=== PATIENT | female | born 1955 | race Caucasian/White ===

== ENCOUNTER 2017-01-10 09:36 | Inpatient (IN) | payer MEDICAID ==
[~2017-01-10] VITALS: Ht 30.5 cm; Wt 86.2 kg
[~2017-01-10 09:36] MED LIST: ALB2.5IS IN; ALPR0.5T7 PO; ARIP1SOL; BUSP15TA60 PO; METH5TAB2 PO; NOR5T PO; PHE100C PO; QUET200T30 PO
[2017-01-10 09:55] VITALS: BP 113/69
[2017-01-10 11:22] LABS: Lactic Acid 2.1 mmol/L (0.4-2.0)
[2017-01-10 11:23] LABS: DEFINITIVE VIEW TRANSMISSION; Hematocrit 43.6 % (36.0-46.0); Hemoglobin 12.5 g/dL (12.2-16.2); Mean Corpuscular Hgb Conc. 28.7 g/dL (32.0-36.0); Mean Corpuscular Volume 69.6 fL (80.0-100.0); Mean Platelet Volume 8.2 fL (7.4-10.4); Platelet Count (auto) 299 10^3/uL (140-450); White Blood Cell 15.9 10^3/uL (4.4-10.8)
[2017-01-10 11:34] LABS: Salicylate 3.5 mg/dL (2.8-20.0)
[2017-01-10 11:36] LABS: Acetaminophen < 2.0 ug/mL (10-30)
[2017-01-10 11:38] LABS: Albumin 3.2 g/dL (3.4-5.0); Alkaline Phosphatase 93 U/L (45-117); Anion Gap 7 (5-15); Aspartate Aminotransferase 19 U/L (15-37); BUN/Creatinine Ratio 13.8; Bilirubin, Total 0.3 mg/dL (0.2-1.0); Blood Urea Nitrogen 12 mg/dL (7-18); Calcium 8.2 mg/dL (8.5-10.1); Carbon Dioxide 29 mmol/L (21-32); Chloride 104 mmol/L (98-107); GFR African American 86 mL/min; GFR Non-African American 71 mL/min; Glucose 125 mg/dL (74-106); Potassium 4.5 mmol/L (3.5-5.1); REFLEX LACTIC ACID YES OR NO YES; Sodium 140 mmol/L (136-145); Total Protein 6.9 g/dL (6.4-8.2)
[2017-01-10 11:48] LABS: Red Cell Distribution Width 20.2 % (11.6-16.0)
[2017-01-10 11:50] LABS: Metamyelocytes % 0; Myelocytes % 0; Promyelocytes % 0; Reactive Lymphocytes 0
[2017-01-10] MEDS ORDERED: CLINDAMYCIN 600MG IV 50 ML IV ONE (12:15)
[2017-01-10] MEDS ORDERED: ENOXAPARIN SOD 100 MG/1 ML SYRINGE SC ONE (12:15)
[2017-01-10] MEDS ORDERED: SODIUM CHLORIDE 0.9% 250 ML IV ONE (12:15)
[2017-01-10] MEDS ORDERED: PIPERACILLIN-TAZOB 3.375GM 100 ML IV ONE (12:15)
[2017-01-10] MEDS ORDERED: SODIUM CHLORIDE 0.9% 1,000 ML IV ONE ×2 (12:15)
[2017-01-10 12:46] LABS: Ovalocytes FEW; Platelet Estimate Adequate
[2017-01-10 12:47] LABS: Anisocytosis Moderate; Hypochromia Marked; Microcytosis Marked; Stomatocytes Few
[2017-01-10] MEDS ORDERED: ACETAMINOPHEN 500 MG TAB PO PRN (14:00)
[2017-01-10] MEDS ORDERED: LORazepam 2MG/ML-1ML VIAL IV PRN (14:00)
[2017-01-10] MEDS ORDERED: MORPHINE SULF INJ 2 MG/ML SYRINGE 1ML IV PRN ×2 (14:00)
[2017-01-10] MEDS ORDERED: ONDANSETRON HCL 4 MG/2 ML VIAL IV PRN (14:00)
[2017-01-10] MEDS ORDERED: NITROGLYCERIN 0.4 MG SL TAB SL PRN (14:00)
[2017-01-10] MEDS ORDERED: DEXTROSE (50%) 50ML SYRG IV PRN (14:00)
[2017-01-10] MEDS ORDERED: PROMETHAZINE HCL 25 MG/ML 1ML IV PRN (14:00)
[2017-01-10] MEDS ORDERED: LACTULOSE 20Gm/30ML SOLN PO PRN (14:00)
[2017-01-10] MEDS ORDERED: HYDROcodone-ACET 5/325MG TAB PO PRN (14:00)
[2017-01-10] MEDS ORDERED: ALBUTEROL SULF 2.5 MG/0.5ML(0.5%) NEB SOLN NEB PRN (14:00)
[2017-01-10] MEDS: ENOXAPARIN SOD 40 MG/0.4 ML SYRINGE SC SCH (14:49)
[2017-01-10] MEDS: cefTRIAXone 1GM/50ML D5W 50 ML IV SCH (14:49)
[2017-01-10] MEDS: AZITHROMYCIN 500MG/D5W 250ML 250 ML IV SCH (15:28)
[2017-01-10 15:47] LABS: Urine Bilirubin Negative (Negative); Urine Blood Negative /uL (Negative); Urine Color Yellow (Yellow); Urine Glucose Normal (Normal); Urine Ketone Negative (Negative); Urine Mucus FEW (None Seen); Urine Nitrite Negative (Negative); Urine RBC <1 /hpf (0 - 4); Urine Squamous Epithelial Cell FEW /hpf (<5); Urine Urobilinogen Normal (Negative)
[2017-01-10] MEDS: InsuLIN REG 1unit/0.01ml Soln (100units/ml) SC SCH (18:00)
[2017-01-10] MEDS: ACCU-CHEK COMFORT CURVE STRIP VI SCH (18:00)
[2017-01-10] MEDS: IPRATROPIUM BROM 0.5 MG/2.5ML INH SOL NEB SCH (18:49)
[2017-01-10] MEDS: ALBUTEROL SULF 2.5 MG/0.5ML(0.5%) NEB SOLN NEB SCH (18:49)
[2017-01-10 22:46] VITALS: BP 95/58
[2017-01-11] MEDS: ACCU-CHEK COMFORT CURVE STRIP VI SCH ×4 (00:06→17:52)
[2017-01-11] MEDS: ALBUTEROL SULF 2.5 MG/0.5ML(0.5%) NEB SOLN NEB SCH ×4 (00:16→19:00)
[2017-01-11] MEDS: IPRATROPIUM BROM 0.5 MG/2.5ML INH SOL NEB SCH ×4 (00:16→19:00)
[2017-01-11] MEDS: InsuLIN REG 1unit/0.01ml Soln (100units/ml) SC SCH ×4 (05:14→17:52)
[2017-01-11 07:39] LABS: Albumin 2.6 g/dL (3.4-5.0); BUN/Creatinine Ratio 12.5; Bilirubin, Total 0.5 mg/dL (0.2-1.0); Calcium 7.5 mg/dL (8.5-10.1); Potassium 4.3 mmol/L (3.5-5.1); Total Protein 6.1 g/dL (6.4-8.2)
[2017-01-11 07:57] LABS: DEFINITIVE VIEW TRANSMISSION; Hematocrit 39.5 % (36.0-46.0); Hemoglobin 11.6 g/dL (12.2-16.2); Mean Corpuscular Hemoglobin 20.3 pg (28.0-32.0); Mean Corpuscular Hgb Conc. 29.3 g/dL (32.0-36.0); Mean Corpuscular Volume 69.4 fL (80.0-100.0); Mean Platelet Volume 8.4 fL (7.4-10.4); Platelet Count (auto) 191 10^3/uL (140-450); White Blood Cell 19.3 10^3/uL (4.4-10.8)
[2017-01-11 08:04] LABS: Red Cell Distribution Width 20.3 % (11.6-16.0)
[2017-01-11 08:05] LABS: Metamyelocytes % 0; Myelocytes % 0; Promyelocytes % 0; Reactive Lymphocytes 0
[2017-01-11] MEDS: cefTRIAXone 1GM/50ML D5W 50 ML IV SCH (09:12)
[2017-01-11 09:51] LABS: Anisocytosis Moderate; Hypochromia Marked; Microcytosis Marked; Platelet Estimate Adequate
[2017-01-11 09:53] LABS: Ovalocytes FEW; Polychromasia Slight; Stomatocytes Few
[2017-01-11] MEDS: ENOXAPARIN SOD 40 MG/0.4 ML SYRINGE SC SCH (10:00)
[2017-01-11] MEDS: AZITHROMYCIN 500MG/D5W 250ML 250 ML IV SCH (10:08)
[2017-01-11] MEDS: METHADONE HCL 10 MG TAB PO ONE ×2 (10:15→18:32)
[2017-01-11] MEDS: SODIUM CHLORIDE 0.9% 1,000 ML IV SCH ×2 (10:19→20:30)
[2017-01-11 13:00] VITALS: BP 95/58
[2017-01-11 17:00] VITALS: BP 99/61
[2017-01-11] MEDS ORDERED: FUROSEMIDE 20 MG/2 ML VIAL IV ONE (19:30)
[2017-01-11 22:00] VITALS: BP 107/58
[2017-01-12] MEDS: ACCU-CHEK COMFORT CURVE STRIP VI SCH ×4 (00:12→17:53)
[2017-01-12] MEDS: ALBUTEROL SULF 2.5 MG/0.5ML(0.5%) NEB SOLN NEB SCH ×4 (00:18→18:56)
[2017-01-12] MEDS: IPRATROPIUM BROM 0.5 MG/2.5ML INH SOL NEB SCH ×4 (00:18→18:56)
[2017-01-12 05:00] VITALS: BP 95/60
[2017-01-12] MEDS: InsuLIN REG 1unit/0.01ml Soln (100units/ml) SC SCH ×4 (06:00→17:53)
[2017-01-12] MEDS: SODIUM CHLORIDE 0.9% 1,000 ML IV SCH (06:15)
[2017-01-12 06:28] LABS: Basophils # (auto) 0 uL; Basophils % (auto) 0.1 % (0.0-2.0); DEFINITIVE VIEW TRANSMISSION; Eosinophils # (auto) 0.1 uL; Eosinophils % (auto) 0.6 % (0.0-7.0); Hematocrit 37.1 % (36.0-46.0); Hemoglobin 11.3 g/dL (12.2-16.2); Lymphocytes # (auto) 1.3 uL; Mean Corpuscular Hemoglobin 21.2 pg (28.0-32.0); Mean Corpuscular Hgb Conc. 30.3 g/dL (32.0-36.0); Mean Corpuscular Volume 69.8 fL (80.0-100.0); Mean Platelet Volume 8.3 fL (7.4-10.4); Monocytes # (auto) 0.8 uL; Monocytes % (auto) 7.6 % (0.0-12.0); Neutrophils # (auto) 8.9 uL; Neutrophils % (auto) 79.7 % (37.0-80.0); Platelet Count (auto) 229 10^3/uL (140-450); Red Cell Distribution Width 19.8 % (11.6-16.0); White Blood Cell 11.2 10^3/uL (4.4-10.8)
[2017-01-12 06:53] LABS: Albumin 2.6 g/dL (3.4-5.0); BUN/Creatinine Ratio 13.5; Bilirubin, Total 0.6 mg/dL (0.2-1.0); Calcium 7.9 mg/dL (8.5-10.1); Potassium 4.1 mmol/L (3.5-5.1); Total Protein 6.3 g/dL (6.4-8.2)
[2017-01-12] MEDS: cefTRIAXone 1GM/50ML D5W 50 ML IV SCH (08:43)
[2017-01-12] MEDS: METHADONE HCL 10 MG TAB PO SCH (08:44)
[2017-01-12] MEDS: ENOXAPARIN SOD 40 MG/0.4 ML SYRINGE SC SCH (08:44)
[2017-01-12 09:00] VITALS: BP 104/55
[2017-01-12] MEDS: FUROSEMIDE 20 MG/2 ML VIAL IV SCH (09:58)
[2017-01-12 11:17] LABS: Anisocytosis Moderate
[2017-01-12 11:18] LABS: Hypochromia Marked; Microcytosis Marked; Ovalocytes FEW; Platelet Estimate Adequate; Stomatocytes Few
[2017-01-12 13:00] VITALS: BP 115/61
[2017-01-12 17:00] VITALS: BP 99/61
[2017-01-12 22:00] VITALS: BP 104/67
[2017-01-13 05:00] VITALS: BP 122/75
[2017-01-13] MEDS: ACCU-CHEK COMFORT CURVE STRIP VI SCH ×3 (05:40→11:24)
[2017-01-13] MEDS: InsuLIN REG 1unit/0.01ml Soln (100units/ml) SC SCH ×3 (05:41→11:24)
[2017-01-13] MEDS: ALBUTEROL SULF 2.5 MG/0.5ML(0.5%) NEB SOLN NEB SCH ×3 (07:59→12:22)
[2017-01-13] MEDS: IPRATROPIUM BROM 0.5 MG/2.5ML INH SOL NEB SCH ×3 (07:59→12:22)
[2017-01-13 09:00] VITALS: BP 135/78
[2017-01-13] MEDS: FUROSEMIDE 20 MG/2 ML VIAL IV SCH (09:15)
[2017-01-13] MEDS: ENOXAPARIN SOD 40 MG/0.4 ML SYRINGE SC SCH (09:15)
[2017-01-13] MEDS: cefTRIAXone 1GM/50ML D5W 50 ML IV SCH (09:16)
[2017-01-13] MEDS: METHADONE HCL 10 MG TAB PO SCH (09:17)
[2017-01-13 10:59] LABS: Basophils # (auto) 0 uL; DEFINITIVE VIEW TRANSMISSION; Eosinophils # (auto) 0 uL; Eosinophils % (auto) 0.1 % (0.0-7.0); Hematocrit 43.4 % (36.0-46.0); Hemoglobin 13.1 g/dL (12.2-16.2); Lymphocytes # (auto) 0.7 uL; Lymphocytes % (auto) 9.9 % (10.0-50.0); Mean Corpuscular Hemoglobin 20.7 pg (28.0-32.0); Mean Corpuscular Hgb Conc. 30.1 g/dL (32.0-36.0); Mean Corpuscular Volume 68.8 fL (80.0-100.0); Mean Platelet Volume 8.1 fL (7.4-10.4); Monocytes # (auto) 0.2 uL; Platelet Count (auto) 289 10^3/uL (140-450); White Blood Cell 6.8 10^3/uL (4.4-10.8)
[2017-01-13 11:19] LABS: Albumin 3.1 g/dL (3.4-5.0); BUN/Creatinine Ratio 17.2; Bilirubin, Total 0.7 mg/dL (0.2-1.0); Calcium 8.8 mg/dL (8.5-10.1); Potassium 3.7 mmol/L (3.5-5.1)
[2017-01-13 11:38] LABS: Red Cell Distribution Width 21.2 % (11.6-16.0)
[2017-01-13 13:00] VITALS: BP 134/70
[2017-01-13 15:35] LABS: Platelet Estimate Adequate
[2017-01-13 15:37] LABS: Anisocytosis Moderate; Hypochromia Moderate
[2017-01-13 15:38] LABS: Microcytosis Marked; Ovalocytes FEW
[2017-01-13 17:00] VITALS: BP 156/81
== END 2017-01-13 17:00 | disposition left against medical advice (07) | DRG 812 ==
LOC: EDUNIT# 09:36 → ER 09:57 → TELE 09:58 → TELE-CENTR 01-11 10:58
PROVIDERS: ADMIT Internal Medicine; ATTEND Internal Medicine
PROC: 02HV33Z Insertion of Infusion Device into Superior Vena Cava, Percutaneous Approach (ICD-10-PCS; principal; 2017-01-10)
DX: T40.3X1A Poisoning by methadone, accidental (unintentional), initial encounter (principal); J96.20 Acute and chronic respiratory failure, unspecified whether with hypoxia or hypercapnia; G92 Toxic encephalopathy; E44.0 Moderate protein-calorie malnutrition; I50.9 Heart failure, unspecified; F41.9 Anxiety disorder, unspecified; F32.9 Major depressive disorder, single episode, unspecified; F20.9 Schizophrenia, unspecified; I11.0 Hypertensive heart disease with heart failure; J44.1 Chronic obstructive pulmonary disease with (acute) exacerbation; G40.909 Epilepsy, unspecified, not intractable, without status epilepticus; M19.90 Unspecified osteoarthritis, unspecified site; F17.210 Nicotine dependence, cigarettes, uncomplicated; D72.829 Elevated white blood cell count, unspecified; J45.909 Unspecified asthma, uncomplicated; Z99.81 Dependence on supplemental oxygen; Z90.89 Acquired absence of other organs; Z82.49 Family history of ischemic heart disease and other diseases of the circulatory system; Z59.0 Homelessness; Z83.3 Family history of diabetes mellitus; Z80.9 Family history of malignant neoplasm, unspecified; Z84.89 Family history of other specified conditions; Y92.89 Other specified places as the place of occurrence of the external cause
CPT/HCPCS: 36415; 36556; 36600; 51702; 70450; 71010; 80053; 80061; 80320; 80329; 81001; 82805; 82962; 83036; 83605; 84443; 84484; 85007; 85025; 85027; 85652; 87040; 87086; 94640; 94660; 96361; 96365; 96366; 96367; 96368; G0434; J0696; J2543; J3490

== ENCOUNTER 2017-02-10 18:51 | Inpatient (IN) | payer MEDICAID ==
[~2017-02-10] VITALS: Ht 162.6 cm; Wt 72.9 kg
[2017-02-11] VITALS (10 sets, daily range): BP systolic 90–129; BP diastolic 55–78
[2017-02-11] MEDS ORDERED: methylPREDNISolone SOD SUCC 125 MG/2 ML VL ONE (00:52)
[2017-02-11] MEDS ORDERED: ALBUTEROL SULF 2.5 MG/0.5ML(0.5%) NEB SOLN NEB ONE (01:00)
[2017-02-11] MEDS ORDERED: methylPREDNISolone SOD SUCC 125 MG/2 ML VL IV ONE (01:00)
[2017-02-11] MEDS ORDERED: IPRATROPIUM BROM 0.5 MG/2.5ML INH SOL NEB ONE (01:00)
[2017-02-11 01:27] LABS: Basophils # (auto) 0 uL; Basophils % (auto) 0.3 % (0.0-2.0); DEFINITIVE VIEW TRANSMISSION; Eosinophils # (auto) 0 uL; Eosinophils % (auto) 0.1 % (0.0-7.0); Hematocrit 44.5 % (36.0-46.0); Hemoglobin 13.2 g/dL (12.2-16.2); Lymphocytes # (auto) 1.2 uL; Lymphocytes % (auto) 11.2 % (10.0-50.0); Mean Corpuscular Hgb Conc. 29.8 g/dL (32.0-36.0); Mean Corpuscular Volume 70.4 fL (80.0-100.0); Mean Platelet Volume 8.1 fL (7.4-10.4); Monocytes # (auto) 0.8 uL; Monocytes % (auto) 7.9 % (0.0-12.0); Neutrophils # (auto) 8.6 uL; Neutrophils % (auto) 80.5 % (37.0-80.0); Platelet Count (auto) 292 10^3/uL (140-450); White Blood Cell 10.7 10^3/uL (4.4-10.8)
[2017-02-11 01:29] LABS: Red Cell Distribution Width 22.1 % (11.6-16.0)
[2017-02-11 01:41] LABS: Albumin 3.4 g/dL (3.4-5.0); Anion Gap 5 (5-15); Aspartate Aminotransferase 13 U/L (15-37); BUN/Creatinine Ratio 5.9; Blood Urea Nitrogen 8 mg/dL (7-18); Calcium 8.1 mg/dL (8.5-10.1); Carbon Dioxide 28 mmol/L (21-32); Chloride 105 mmol/L (98-107); GFR African American 51 mL/min; GFR Non-African American 42 mL/min; Glucose 135 mg/dL (74-106); Magnesium 2.2 mg/dL (1.6-2.6); Sodium 138 mmol/L (136-145)
[2017-02-11 01:44] LABS: INR 1.11 (0.9-1.15); Partial Thromboplastin Time 26.1 sec (22.64-33.71); Prothrombin Time 11.4 sec (9.37-12.3)
[2017-02-11 01:46] LABS: Alkaline Phosphatase 93 U/L (45-117); Bilirubin, Total 0.3 mg/dL (0.2-1.0); Total Protein 7.7 g/dL (6.4-8.2)
[2017-02-11 02:37] LABS: Platelet Estimate Adequate
[2017-02-11 02:38] LABS: Anisocytosis Moderate; Hypochromia Moderate; Microcytosis Marked; Ovalocytes FEW
[2017-02-11 03:37] LABS: Urine Bilirubin Negative (Negative); Urine Blood Negative /uL (Negative); Urine Color Yellow (Yellow); Urine Glucose Normal (Normal); Urine Hyaline Cast MANY /lpf (0 - 2); Urine Ketone Negative (Negative); Urine Mucus FEW (None Seen); Urine Nitrite Negative (Negative); Urine RBC 49 /hpf (0 - 4); Urine Squamous Epithelial Cell FEW /hpf (<5); Urine Urobilinogen Normal (Negative)
[2017-02-11] MEDS ORDERED: cefTRIAXone 1GM/50ML D5W 50 ML IV ONE (05:30)
[2017-02-11] MEDS ORDERED: ALBUTEROL SULF 2.5 MG/0.5ML(0.5%) NEB SOLN NEB STA (06:35)
[2017-02-11] MEDS ORDERED: CALCIUM GLUC 4.65 MEQ/10ML 4.65 MEQ in SODIUM CHL 0.9% 50 ML IV ONE (06:45)
[2017-02-11] MEDS ORDERED: SODIUM BICARBONATE 8.4% INJ 50ML SYRINGE IV ONE (06:45)
[2017-02-11] MEDS ORDERED: InsuLIN REG 1unit/0.01ml Soln (100units/ml) IV ONE (06:45)
[2017-02-11] MEDS ORDERED: DEXTROSE (50%) 50ML SYRG IV ONE (06:45)
[2017-02-11] MEDS ORDERED: cloNIDine HCL 0.1 MG TAB PO ONE (08:30)
[2017-02-11] MEDS ORDERED: MIDAZOLAM HCL 1MG/1ML-2 ML VIAL ONE (12:41)
[2017-02-11] MEDS ORDERED: FOLIC ACID 1 MG in D5W 5% 50 ML IV ONE (15:15)
[2017-02-11] MEDS ORDERED: THIAMINE HCL 100 MG/ML 2ML VIAL IV ONE (15:15)
[2017-02-11] MEDS ORDERED: LORazepam 2MG/ML-1ML VIAL IV PRN (15:15)
[2017-02-11] MEDS ORDERED: NITROGLYCERIN 0.4 MG SL TAB SL PRN (15:15)
[2017-02-11] MEDS ORDERED: PANTOPRAZOLE SODIUM 40 MG/10 ML VIAL IV ONE (15:45)
[2017-02-11] MEDS ORDERED: methylPREDNISolone SOD SUCC 40 MG/ML VL IV ONE (15:45)
[2017-02-11 15:47] LABS: Lactic Acid 3.5 mmol/L (0.4-2.0)
[2017-02-11] MEDS: DOXYCYCLINE HYC 100MG/250ML 250 ML IV SCH (16:31)
[2017-02-11 16:33] LABS: REFLEX LACTIC ACID YES OR NO YES
[2017-02-11] MEDS: ALBUTEROL SULF 2.5 MG/0.5ML(0.5%) NEB SOLN NEB SCH (19:15)
[2017-02-11] MEDS: IPRATROPIUM BROM 0.5 MG/2.5ML INH SOL NEB SCH (19:15)
[2017-02-11 19:39] LABS: Lactic Acid 3.3 mmol/L (0.4-2.0)
[2017-02-11 19:41] LABS: REFLEX LACTIC ACID YES OR NO NO
[2017-02-11] MEDS: methylPREDNISolone SOD SUCC 40 MG/ML VL IV SCH (21:39)
[2017-02-12] VITALS (7 sets, daily range): BP systolic 99–122; BP diastolic 50–76
[2017-02-12] MEDS: DOXYCYCLINE HYC 100MG/250ML 250 ML IV SCH ×2 (03:28→15:25)
[2017-02-12] MEDS: methylPREDNISolone SOD SUCC 40 MG/ML VL IV SCH ×2 (05:48→13:45)
[2017-02-12] MEDS: IPRATROPIUM BROM 0.5 MG/2.5ML INH SOL NEB SCH ×4 (06:24→18:10)
[2017-02-12] MEDS: ALBUTEROL SULF 2.5 MG/0.5ML(0.5%) NEB SOLN NEB SCH ×4 (06:24→18:10)
[2017-02-12 06:50] LABS: Potassium 4.7 mmol/L (3.5-5.1)
[2017-02-12 07:07] LABS: BUN/Creatinine Ratio 24.2
[2017-02-12] MEDS ORDERED: FOLIC ACID 1 MG in D5W 5% 50 ML IV SCH (10:00)
[2017-02-12] MEDS ORDERED: THIAMINE HCL 100 MG/ML 2ML VIAL IV SCH (10:00)
[2017-02-12] MEDS ORDERED: PANTOPRAZOLE SODIUM 40 MG/10 ML VIAL IV SCH (10:00)
[2017-02-12] MEDS: MORPHINE SULF INJ 2 MG/ML SYRINGE 1ML IV PRN ×2 (10:25→16:53)
[2017-02-12 17:25] LABS: Hematocrit 39.1 % (36.0-46.0); Hemoglobin 11.8 g/dL (12.2-16.2); White Blood Cell 17.7 10^3/uL (4.4-10.8)
[2017-02-12 17:26] LABS: Mean Corpuscular Hemoglobin 20.9 pg (28.0-32.0); Mean Corpuscular Hgb Conc. 30.2 g/dL (32.0-36.0); Mean Corpuscular Volume 69.4 fL (80.0-100.0); Platelet Count (auto) 256 10^3/uL (140-450); Red Cell Distribution Width 22.5 % (11.6-16.0)
[2017-02-12 17:27] LABS: Metamyelocytes % 0; Myelocytes % 0; Promyelocytes % 0; Reactive Lymphocytes 0
[2017-02-12 18:36] LABS: Anisocytosis Moderate; Platelet Estimate Adequate
[2017-02-12 18:37] LABS: Hypochromia Moderate; Large Platelets FEW; Microcytosis Moderate; Ovalocytes FEW
== END 2017-02-12 19:30 | disposition left against medical advice (07) | DRG 812 ==
LOC: EDBD 18:51 → ER 18:51 → TELE 18:52 → TELE-WESTW 02-11 17:04
PROVIDERS: ADMIT Internal Medicine; ATTEND Internal Medicine
PROC: 5A09457 Assistance with Respiratory Ventilation, 24-96 Consecutive Hours, Continuous Positive Airway Pressure (ICD-10-PCS; principal; 2017-02-11)
DX: T50.901A Poisoning by unspecified drugs, medicaments and biological substances, accidental (unintentional), initial encounter (principal); J96.21 Acute and chronic respiratory failure with hypoxia; J18.9 Pneumonia, unspecified organism; N17.9 Acute kidney failure, unspecified; I11.0 Hypertensive heart disease with heart failure; I50.32 Chronic diastolic (congestive) heart failure; J44.1 Chronic obstructive pulmonary disease with (acute) exacerbation; E87.5 Hyperkalemia; F10.10 Alcohol abuse, uncomplicated; N39.0 Urinary tract infection, site not specified; G40.909 Epilepsy, unspecified, not intractable, without status epilepticus; F20.9 Schizophrenia, unspecified; F32.9 Major depressive disorder, single episode, unspecified; E66.9 Obesity, unspecified; J45.909 Unspecified asthma, uncomplicated; J44.0 Chronic obstructive pulmonary disease with (acute) lower respiratory infection; F17.210 Nicotine dependence, cigarettes, uncomplicated; F41.9 Anxiety disorder, unspecified; F19.10 Other psychoactive substance abuse, uncomplicated; M19.90 Unspecified osteoarthritis, unspecified site; Z80.9 Family history of malignant neoplasm, unspecified; Z59.0 Homelessness; Z82.49 Family history of ischemic heart disease and other diseases of the circulatory system; Z83.3 Family history of diabetes mellitus; Y92.89 Other specified places as the place of occurrence of the external cause; Z90.49 Acquired absence of other specified parts of digestive tract; Z91.19 Patient's noncompliance with other medical treatment and regimen; Z68.27 Body mass index [BMI] 27.0-27.9, adult
CPT/HCPCS: 36415; 36556; 36600; 51702; 70450; 71010; 80048; 80053; 80320; 81001; 82805; 83605; 83735; 84132; 84484; 85007; 85025; 85027; 85379; 85610; 85730; 87040; 93005; 93306; 94640; 94644; 94660; 96365; 96368; 96372; 96375; 96376; C9113; G0434; J0696; J1815; J2250; J3490; J7060

== ENCOUNTER 2017-02-13 09:58 | Inpatient (IN) | payer MEDICAID ==
[~2017-02-13] VITALS: Ht 165.1 cm; Wt 70.8 kg
[2017-02-13 13:51] LABS: Basophils # (auto) 0.1 uL; Basophils % (auto) 0.6 % (0.0-2.0); DEFINITIVE VIEW TRANSMISSION; Eosinophils # (auto) 0 uL; Eosinophils % (auto) 0.1 % (0.0-7.0); Hematocrit 40.9 % (36.0-46.0); Lymphocytes # (auto) 2.1 uL; Lymphocytes % (auto) 12.6 % (10.0-50.0); Mean Corpuscular Hemoglobin 21.5 pg (28.0-32.0); Mean Corpuscular Hgb Conc. 31.7 g/dL (32.0-36.0); Mean Corpuscular Volume 68.1 fL (80.0-100.0); Mean Platelet Volume 8.2 fL (7.4-10.4); Monocytes # (auto) 0.9 uL; Monocytes % (auto) 5.4 % (0.0-12.0); Neutrophils # (auto) 13.8 uL; Neutrophils % (auto) 81.3 % (37.0-80.0); Platelet Count (auto) 203 10^3/uL (140-450); SUSPECT VIEW TRANSMISSION
[2017-02-13 13:53] LABS: Red Cell Distribution Width 22.1 % (11.6-16.0)
[2017-02-13 14:11] LABS: Anisocytosis Moderate; Hypochromia Moderate; Microcytosis Marked
[2017-02-13 14:12] LABS: Ovalocytes FEW
[2017-02-13 14:13] LABS: Stomatocytes Few
[2017-02-13 14:14] LABS: Large Platelets FEW; Platelet Clumps FEW; Platelet Estimate Adequa
[2017-02-13 14:36] LABS: Albumin 3.2 g/dL (3.4-5.0); BUN/Creatinine Ratio 31.3; Bilirubin, Total 0.7 mg/dL (0.2-1.0); Calcium 8.6 mg/dL (8.5-10.1); Magnesium 2.1 mg/dL (1.6-2.6); Potassium 4.4 mmol/L (3.5-5.1); Total Protein 7.1 g/dL (6.4-8.2)
[2017-02-13 15:28] VITALS: BP 135/82
[2017-02-13] MEDS ORDERED: LEVOFLOXACIN 500MG 100 ML IV ONE (15:30)
[2017-02-13] MEDS ORDERED: LORazepam 0.5 MG TAB PO PRN (15:45)
[2017-02-13] MEDS ORDERED: ALBUTEROL SULF 2.5 MG/0.5ML(0.5%) NEB SOLN NEB PRN (15:45)
[2017-02-13] MEDS ORDERED: NITROGLYCERIN 0.4 MG SL TAB SL PRN (15:45)
[2017-02-13] MEDS ORDERED: PROMETHAZINE HCL 25 MG/ML 1ML IV PRN (15:45)
[2017-02-13] MEDS ORDERED: MORPHINE SULF INJ 2 MG/ML SYRINGE 1ML IV PRN ×2 (15:45)
[2017-02-13] MEDS ORDERED: TEMAZEPAM 15 MG CAP PO PRN (15:45)
[2017-02-13] MEDS ORDERED: ACETAMINOPHEN 500 MG TAB PO PRN (15:45)
[2017-02-13] MEDS ORDERED: HYDROcodone-ACET 5/325MG TAB PO PRN (15:45)
[2017-02-13] MEDS ORDERED: LACTULOSE 20Gm/30ML SOLN PO PRN (15:45)
[2017-02-13 16:13] LABS: Temperature: 23.1 C (20.0-25.0)
[2017-02-13] MEDS ORDERED: ENALAPRIL MALEATE 2.5 MG TAB PO SCH (16:15)
[2017-02-13] MEDS ORDERED: NITROGLYCERIN 0.2MG/HR TOPICAL PATCH TD SCH (16:15)
[2017-02-13] MEDS ORDERED: OSELTAMIVIR 75 MG CAP PO ONE (16:30)
[2017-02-13] MEDS ORDERED: ENOXAPARIN SOD 40 MG/0.4 ML SYRINGE SC SCH (16:30)
[2017-02-13] MEDS ORDERED: ASPirin 81 mg TAB PO SCH (16:30)
[2017-02-13] MEDS ORDERED: ALBUTEROL SULF 2.5 MG/0.5ML(0.5%) NEB SOLN NEB SCH (18:00)
[2017-02-13] MEDS ORDERED: IPRATROPIUM BROM 0.5 MG/2.5ML INH SOL NEB SCH (18:00)
[2017-02-13] MEDS ORDERED: SODIUM CHLOR 0.9% PF (SALINE LOCK) 10ML VIAL IV SCH (22:00)
[2017-02-13] MEDS ORDERED: CARVEDILOL 3.125 MG TAB PO SCH (22:00)
[2017-02-13] MEDS ORDERED: OSELTAMIVIR 75 MG CAP PO SCH (22:00)
[2017-02-14] MEDS ORDERED: NALOXONE HCL 0.4 MG/ML VIAL ONE (05:51)
[2017-02-14] MEDS ORDERED: cefTRIAXone 1GM/50ML D5W 50 ML IV SCH (09:00)
[2017-02-14] MEDS ORDERED: AZITHROMYCIN 500MG/D5W 250ML 250 ML IV SCH (10:00)
== END 2017-02-13 15:59 | disposition left against medical advice (07) | DRG 139 ==
LOC: ER 10:01 → TELE 10:02
PROVIDERS: ADMIT Internal Medicine; ATTEND Internal Medicine Pulmonary Disease
DX: J18.9 Pneumonia, unspecified organism (principal); I11.0 Hypertensive heart disease with heart failure; I50.9 Heart failure, unspecified; R56.9 Unspecified convulsions; J44.0 Chronic obstructive pulmonary disease with (acute) lower respiratory infection; J45.909 Unspecified asthma, uncomplicated; F17.210 Nicotine dependence, cigarettes, uncomplicated; F20.9 Schizophrenia, unspecified; Z59.0 Homelessness; Z80.0 Family history of malignant neoplasm of digestive organs; Z80.1 Family history of malignant neoplasm of trachea, bronchus and lung; Z80.3 Family history of malignant neoplasm of breast; Z80.41 Family history of malignant neoplasm of ovary; Z80.8 Family history of malignant neoplasm of other organs or systems; Z81.8 Family history of other mental and behavioral disorders; Z82.0 Family history of epilepsy and other diseases of the nervous system; Z82.3 Family history of stroke; Z82.49 Family history of ischemic heart disease and other diseases of the circulatory system; Z83.3 Family history of diabetes mellitus; Z91.19 Patient's noncompliance with other medical treatment and regimen; F32.9 Major depressive disorder, single episode, unspecified; F41.9 Anxiety disorder, unspecified; M19.90 Unspecified osteoarthritis, unspecified site; Z53.21 Procedure and treatment not carried out due to patient leaving prior to being seen by health care provider; Z80.9 Family history of malignant neoplasm, unspecified; Z90.89 Acquired absence of other organs; Z80.42 Family history of malignant neoplasm of prostate; Z83.49 Family history of other endocrine, nutritional and metabolic diseases; D72.829 Elevated white blood cell count, unspecified
CPT/HCPCS: 36415; 71010; 80053; 83735; 83880; 84484; 85025; 94761

== ENCOUNTER 2017-02-14 05:52 | Emergency (ER) | payer MEDICAID ==
[~2017-02-14] VITALS: Ht 167.6 cm; Wt 74.8 kg
[2017-02-14] MEDS ORDERED: IPRATROPIUM BROM 0.5 MG/2.5ML INH SOL NEB ONE (09:00)
[2017-02-14] MEDS ORDERED: ALBUTEROL SULF 2.5 MG/0.5ML(0.5%) NEB SOLN NEB ONE (09:00)
[2017-02-14 11:15] VITALS: BP 105/61
== END 2017-02-14 11:40 | disposition home or self-care (01) ==
LOC: ER 05:52
DX: J44.1 Chronic obstructive pulmonary disease with (acute) exacerbation (principal); M19.90 Unspecified osteoarthritis, unspecified site; J45.909 Unspecified asthma, uncomplicated; J44.9 Chronic obstructive pulmonary disease, unspecified; I50.9 Heart failure, unspecified; I11.0 Hypertensive heart disease with heart failure; F17.210 Nicotine dependence, cigarettes, uncomplicated; F12.10 Cannabis abuse, uncomplicated; F15.10 Other stimulant abuse, uncomplicated; F11.10 Opioid abuse, uncomplicated; Z59.0 Homelessness; Z90.49 Acquired absence of other specified parts of digestive tract
CPT/HCPCS: 94640

== ENCOUNTER 2017-03-15 00:32 | Emergency (ER) | payer MEDICAID ==
[~2017-03-15] VITALS: Ht 157.5 cm; Wt 63.5 kg
[2017-03-15 00:35] VITALS: BP 109/71
== END 2017-03-15 02:45 | disposition left against medical advice (07) ==
LOC: ER 00:32
DX: R53.1 Weakness (principal); Z53.21 Procedure and treatment not carried out due to patient leaving prior to being seen by health care provider

== ENCOUNTER 2017-04-01 01:39 | Inpatient (IN) | payer MEDICAID ==
[~2017-04-01] VITALS: Ht 172.7 cm; Wt 63.6 kg
[2017-04-01] VITALS (33 sets, daily range): BP systolic 81–133; BP diastolic 55–81
[~2017-04-01 01:39] MED LIST changes: +HYDR-4663 PO; -NOR5T PO
[2017-04-01] MEDS ORDERED: SUCCINYLCHOLINE CHLORIDE 20 MG/ML 10ML VIAL IV ONE ×2 (01:52→02:05)
[2017-04-01] MEDS ORDERED: ETOMIDATE (2MG/ML) 20ML VIAL IV ONE ×2 (01:52→02:05)
[2017-04-01] MEDS ORDERED: NALOXONE HCL 1MG/ML 2ML SYRINGE ONE (01:56)
[2017-04-01] MEDS ORDERED: MIDAZOLAM DRIP 100 mg/100mL NS 100 ML IV ONE (02:04)
[2017-04-01 02:31] LABS: Albumin 3.4 g/dL (3.4-5.0); Anion Gap 10 (5-15); Aspartate Aminotransferase 175 U/L (15-37); BUN/Creatinine Ratio 11.3; Blood Urea Nitrogen 13 mg/dL (7-18); Calcium 7.5 mg/dL (8.5-10.1); Carbon Dioxide 26 mmol/L (21-32); Chloride 103 mmol/L (98-107); GFR African American 62 mL/min; GFR Non-African American 51 mL/min; Glucose 100 mg/dL (74-106); Magnesium 1.9 mg/dL (1.6-2.6); Sodium 139 mmol/L (136-145)
[2017-04-01] MEDS ORDERED: fentaNYL Drip 2500mCg/250mlNS 250 ML IV ONE (02:31)
[2017-04-01 02:36] LABS: Alkaline Phosphatase 84 U/L (45-117); Bilirubin, Total 0.6 mg/dL (0.2-1.0); Total Protein 6.6 g/dL (6.4-8.2)
[2017-04-01 02:40] LABS: Potassium 6.6 mmol/L (3.5-5.1)
[2017-04-01 03:14] LABS: Urine RBC None Seen /hpf (0 - 4)
[2017-04-01 03:39] LABS: Urine Bilirubin Negative (Negative); Urine Blood Negative /uL (Negative); Urine Color Yellow (Yellow); Urine Glucose Normal (Normal); Urine Hyaline Cast FEW /lpf (0 - 2); Urine Ketone Negative (Negative); Urine Nitrite Negative (Negative); Urine Squamous Epithelial Cell FEW /hpf (<5); Urine Urobilinogen Normal (Negative); Urine pH 5.5 (5.0-8.0)
[2017-04-01] MEDS ORDERED: SODIUM CHLORIDE 0.9% 1,000 ML IV ONE ×2 (04:00→13:00)
[2017-04-01] MEDS ORDERED: cefTRIAXone 1GM/50ML D5W 50 ML IV ONE (04:00)
[2017-04-01] MEDS ORDERED: NALOXONE HCL 1MG/ML 2ML SYRINGE IV ONE (04:15)
[2017-04-01 04:23] LABS: Lactic Acid w/Reflex 6.4 mmol/L (0.4-2.0)
[2017-04-01] MEDS: fentaNYL Drip 2500mCg/250mlNS 250 ML IV SCH (04:24)
[2017-04-01] MEDS: MIDAZOLAM DRIP 100 mg/100mL NS 100 ML IV SCH ×2 (04:25→23:38)
[2017-04-01 04:32] LABS: Basophils # (auto) 0 uL; Basophils % (auto) 0.4 % (0.0-2.0); DEFINITIVE VIEW TRANSMISSION; Eosinophils # (auto) 0 uL; Eosinophils % (auto) 0.1 % (0.0-7.0); Hematocrit 40.3 % (36.0-46.0); Hemoglobin 11.5 g/dL (12.2-16.2); Lymphocytes # (auto) 0.8 uL; Lymphocytes % (auto) 9.1 % (10.0-50.0); Mean Corpuscular Hemoglobin 19.3 pg (28.0-32.0); Mean Corpuscular Hgb Conc. 28.5 g/dL (32.0-36.0); Mean Corpuscular Volume 67.6 fL (80.0-100.0); Mean Platelet Volume 7.8 fL (7.4-10.4); Monocytes # (auto) 0.4 uL; Monocytes % (auto) 5.2 % (0.0-12.0); Neutrophils # (auto) 7.1 uL; Neutrophils % (auto) 85.2 % (37.0-80.0); Platelet Count (auto) 294 10^3/uL (140-450); Red Cell Distribution Width 19.7 % (11.6-16.0); SUSPECT VIEW TRANSMISSION; White Blood Cell 8.3 10^3/uL (4.4-10.8)
[2017-04-01 04:42] LABS: REFLEX LACTIC ACID YES OR NO YES
[2017-04-01 04:45] LABS: Partial Thromboplastin Time 26.1 sec (22.64-33.71)
[2017-04-01 04:53] LABS: INR 1.3 (0.9-1.15)
[2017-04-01 05:12] LABS: Temperature: 21.2 C (20.0-25.0)
[2017-04-01] MEDS ORDERED: SODIUM CHLORIDE 0.9% 1,000 ML IV SCH (06:23)
[2017-04-01] MEDS ORDERED: ONDANSETRON HCL 4 MG/2 ML VIAL IV PRN (06:30)
[2017-04-01] MEDS ORDERED: MORPHINE SULF INJ 2 MG/ML SYRINGE 1ML IV PRN (06:30)
[2017-04-01] MEDS ORDERED: ENOXAPARIN SOD 100 MG/1 ML SYRINGE SC ONE (06:30)
[2017-04-01] MEDS ORDERED: VANCOMYCIN PER PHARMACY 0 MG IV SCH (06:30)
[2017-04-01] MEDS ORDERED: NITROGLYCERIN 0.4 MG SL TAB SL PRN (06:30)
[2017-04-01] MEDS: PIPERACILLIN-TAZOB 3.375GM 100 ML IV SCH ×3 (07:15→23:38)
[2017-04-01] MEDS: methylPREDNISolone SOD SUCC 125 MG/2 ML VL IV SCH ×2 (07:24→20:06)
[2017-04-01] MEDS: ASPirin 81 mg TAB NG SCH (09:54)
[2017-04-01] MEDS: PANTOPRAZOLE SODIUM 40 MG/10 ML VIAL IV SCH (09:54)
[2017-04-01] MEDS: VANCOMYCIN 1GM/250ML D5W 250 ML IV SCH ×2 (09:54→21:41)
[2017-04-01] MEDS: NOREPINEPHRINE BITARTRATE 250 ML IV SCH (13:09)
[2017-04-01] MEDS ORDERED: FUROSEMIDE 20 MG/2 ML VIAL IV ONE (19:45)
[2017-04-01] MEDS ORDERED: POTASSIUM CHL 20MEQ/100ML 100 ML IV ONE (19:45)
[2017-04-01] MEDS: MAGNESIUM SULFATE 1GM/100ML 100 ML IV SCH ×2 (20:07→21:41)
[2017-04-02] VITALS (97 sets, daily range): BP systolic 87–126; BP diastolic 43–82
[2017-04-02 03:35] LABS: Basophils # (auto) 0.1 uL; Basophils % (auto) 0.5 % (0.0-2.0); DEFINITIVE VIEW TRANSMISSION; Eosinophils # (auto) 0 uL; Hematocrit 39.2 % (36.0-46.0); Hemoglobin 11.4 g/dL (12.2-16.2); Lymphocytes # (auto) 0.9 uL; Lymphocytes % (auto) 7.6 % (10.0-50.0); Mean Corpuscular Hemoglobin 19.3 pg (28.0-32.0); Mean Corpuscular Hgb Conc. 29.2 g/dL (32.0-36.0); Mean Platelet Volume 7.9 fL (7.4-10.4); Monocytes # (auto) 0.3 uL; Monocytes % (auto) 2.3 % (0.0-12.0); Neutrophils # (auto) 10.4 uL; Neutrophils % (auto) 89.6 % (37.0-80.0); Platelet Count (auto) 281 10^3/uL (140-450); White Blood Cell 11.6 10^3/uL (4.4-10.8)
[2017-04-02 04:02] LABS: Albumin 2.9 g/dL (3.4-5.0); BUN/Creatinine Ratio 21.1; Calcium 8.2 mg/dL (8.5-10.1); Potassium 3.8 mmol/L (3.5-5.1)
[2017-04-02 04:05] LABS: Bilirubin, Total 0.7 mg/dL (0.2-1.0); Total Protein 6.2 g/dL (6.4-8.2)
[2017-04-02] MEDS: fentaNYL Drip 2500mCg/250mlNS 250 ML IV SCH ×2 (04:11→11:42)
[2017-04-02 04:15] LABS: Red Cell Distribution Width 22.7 % (11.6-16.0)
[2017-04-02 04:30] LABS: Platelet Estimate Adequate
[2017-04-02 04:31] LABS: Anisocytosis Moderate; Hypochromia Marked; Microcytosis Marked; Ovalocytes FEW
[2017-04-02] MEDS: MIDAZOLAM DRIP 100 mg/100mL NS 100 ML IV SCH ×2 (05:58→11:41)
[2017-04-02] MEDS: methylPREDNISolone SOD SUCC 125 MG/2 ML VL IV SCH ×2 (05:58→17:50)
[2017-04-02] MEDS: PIPERACILLIN-TAZOB 3.375GM 100 ML IV SCH ×4 (05:58→23:58)
[2017-04-02] MEDS: SODIUM CHLORIDE 0.9% 1,000 ML IV SCH ×2 (06:23→16:23)
[2017-04-02 07:59] LABS: Allen Test Modified; Base Excess 4.8 mmol/L (-2.0-2.0); Blood 02Sat 94.9 % (96-100); Blood AaDO2 216.7 mmHg (<26.0); Blood MetHb 0.4 % (0.0-1.5); HCO3 30.9 mmol/L (22-26.0); MODE VENT - A/C; O2Hb 93.4 % (95.0-100.0); PCO2 52.3 mmHg (35.0-45.0); PIP 31; Sample Type Arterial
[2017-04-02] MEDS: VANCOMYCIN 1GM/250ML D5W 250 ML IV SCH ×2 (09:57→22:39)
[2017-04-02] MEDS: PANTOPRAZOLE SODIUM 40 MG/10 ML VIAL IV SCH ×2 (09:58→21:41)
[2017-04-02] MEDS: ASPirin 81 mg TAB NG SCH (09:58)
[2017-04-02] MEDS: NOREPINEPHRINE BITARTRATE 250 ML IV SCH (09:59)
[2017-04-02] MEDS: ENOXAPARIN SOD 40 MG/0.4 ML SYRINGE SC SCH (10:00)
[2017-04-02 11:40] LABS: Blood COHb 1.2 % (0.5-1.5)
[2017-04-02] MEDS ORDERED: ETOMIDATE (2MG/ML) 20ML VIAL IV ONE (21:49)
[2017-04-02] MEDS ORDERED: SUCCINYLCHOLINE CHLORIDE 20 MG/ML 10ML VIAL IV ONE (21:49)
[2017-04-03] VITALS (101 sets, daily range): BP systolic 96–138; BP diastolic 59–90
[2017-04-03] MEDS: SODIUM CHLORIDE 0.9% 1,000 ML IV SCH ×3 (02:23→22:30)
[2017-04-03] MEDS: MIDAZOLAM DRIP 100 mg/100mL NS 100 ML IV SCH ×3 (04:27→17:48)
[2017-04-03 05:17] LABS: Basophils # (auto) 0 uL; DEFINITIVE VIEW TRANSMISSION; Eosinophils # (auto) 0 uL; Hematocrit 35.4 % (36.0-46.0); Hemoglobin 10.4 g/dL (12.2-16.2); Lymphocytes # (auto) 0.8 uL; Lymphocytes % (auto) 9.6 % (10.0-50.0); Mean Corpuscular Hemoglobin 19.4 pg (28.0-32.0); Mean Corpuscular Hgb Conc. 29.3 g/dL (32.0-36.0); Mean Corpuscular Volume 66.1 fL (80.0-100.0); Mean Platelet Volume 8.4 fL (7.4-10.4); Monocytes # (auto) 0.5 uL; Monocytes % (auto) 5.9 % (0.0-12.0); Neutrophils # (auto) 7.1 uL; Neutrophils % (auto) 84.5 % (37.0-80.0); Platelet Count (auto) 224 10^3/uL (140-450); White Blood Cell 8.4 10^3/uL (4.4-10.8)
[2017-04-03 05:29] LABS: Albumin 2.8 g/dL (3.4-5.0); Calcium 8.1 mg/dL (8.5-10.1)
[2017-04-03 05:31] LABS: BUN/Creatinine Ratio 35.6
[2017-04-03 05:32] LABS: Red Cell Distribution Width 21.9 % (11.6-16.0)
[2017-04-03 05:34] LABS: Bilirubin, Total 0.5 mg/dL (0.2-1.0); Total Protein 5.9 g/dL (6.4-8.2)
[2017-04-03] MEDS: PIPERACILLIN-TAZOB 3.375GM 100 ML IV SCH ×3 (06:26→17:40)
[2017-04-03] MEDS: methylPREDNISolone SOD SUCC 125 MG/2 ML VL IV SCH ×2 (06:26→18:50)
[2017-04-03 06:35] LABS: Platelet Estimate Decreased
[2017-04-03 06:36] LABS: Anisocytosis Moderate; Hypochromia Marked; Microcytosis Marked; Ovalocytes FEW
[2017-04-03] MEDS: ASPirin 81 mg TAB NG SCH (09:20)
[2017-04-03] MEDS: PANTOPRAZOLE SODIUM 40 MG/10 ML VIAL IV SCH ×2 (09:20→22:00)
[2017-04-03] MEDS: ENOXAPARIN SOD 40 MG/0.4 ML SYRINGE SC SCH (09:20)
[2017-04-03] MEDS: VANCOMYCIN 1,250 MG in D5W 5% 250 ML IV SCH ×2 (10:15→22:00)
[2017-04-03] MEDS: NOREPINEPHRINE BITARTRATE 250 ML IV SCH (13:00)
[2017-04-03] MEDS: fentaNYL Drip 2500mCg/250mlNS 250 ML IV SCH (17:47)
[2017-04-03] MEDS: FREE WATER GT SCH (18:00)
[2017-04-03] MEDS: Nutren Pulmonary 1 Liter GT SCH (18:37)
[2017-04-04] VITALS (104 sets, daily range): BP systolic 112–169; BP diastolic 63–104
[2017-04-04 04:04] LABS: Basophils # (auto) 0 uL; DEFINITIVE VIEW TRANSMISSION; Eosinophils # (auto) 0 uL; Hematocrit 35.7 % (36.0-46.0); Hemoglobin 10.5 g/dL (12.2-16.2); Lymphocytes % (auto) 8.8 % (10.0-50.0); Mean Corpuscular Hemoglobin 19.2 pg (28.0-32.0); Mean Corpuscular Hgb Conc. 29.5 g/dL (32.0-36.0); Mean Corpuscular Volume 65.2 fL (80.0-100.0); Mean Platelet Volume 9.3 fL (7.4-10.4); Monocytes # (auto) 0.7 uL; Monocytes % (auto) 6.4 % (0.0-12.0); Neutrophils # (auto) 9.5 uL; Neutrophils % (auto) 84.8 % (37.0-80.0); Platelet Count (auto) 268 10^3/uL (140-450); SUSPECT VIEW TRANSMISSION; White Blood Cell 11.2 10^3/uL (4.4-10.8)
[2017-04-04 04:08] LABS: Red Cell Distribution Width 22.3 % (11.6-16.0)
[2017-04-04 04:20] LABS: Albumin 2.7 g/dL (3.4-5.0); BUN/Creatinine Ratio 32.5; Bilirubin, Total 0.5 mg/dL (0.2-1.0); Calcium 8.1 mg/dL (8.5-10.1); Potassium 3.9 mmol/L (3.5-5.1)
[2017-04-04 04:56] LABS: Platelet Estimate Adequate
[2017-04-04 04:57] LABS: Anisocytosis Moderate; Hypochromia Marked; Microcytosis Marked; Ovalocytes FEW
[2017-04-04] MEDS: PIPERACILLIN-TAZOB 3.375GM 100 ML IV SCH ×4 (06:00→17:47)
[2017-04-04] MEDS: FREE WATER GT SCH ×4 (06:00→17:47)
[2017-04-04] MEDS: SODIUM CHLORIDE 0.9% 1,000 ML IV SCH ×2 (06:32→18:13)
[2017-04-04] MEDS: methylPREDNISolone SOD SUCC 125 MG/2 ML VL IV SCH ×2 (06:32→18:13)
[2017-04-04] MEDS: MIDAZOLAM DRIP 100 mg/100mL NS 100 ML IV SCH (08:16)
[2017-04-04] MEDS ORDERED: SODIUM CHLORIDE 0.9% 500 ML IV ONE (08:30)
[2017-04-04] MEDS: VANCOMYCIN 1,250 MG in D5W 5% 250 ML IV SCH (09:52)
[2017-04-04] MEDS: PANTOPRAZOLE SODIUM 40 MG/10 ML VIAL IV SCH ×2 (09:53→22:33)
[2017-04-04] MEDS: ASPirin 81 mg TAB NG SCH (09:53)
[2017-04-04] MEDS: ENOXAPARIN SOD 40 MG/0.4 ML SYRINGE SC SCH (09:53)
[2017-04-04] MEDS: PROPOFOL 100 ML IV SCH (13:00)
[2017-04-04] MEDS: NOREPINEPHRINE BITARTRATE 250 ML IV SCH (13:00)
[2017-04-04] MEDS ORDERED: DOPamine 1600MCG/ML 250 ML IV ONE (14:33)
[2017-04-04] MEDS: DOPamine 1600MCG/ML 250 ML IV SCH (15:48)
[2017-04-04] MEDS ORDERED: FUROSEMIDE 40 MG/4 ML VIAL IV ONE (16:30)
[2017-04-04] MEDS: fentaNYL Drip 2500mCg/250mlNS 250 ML IV SCH (18:38)
[2017-04-04] MEDS: IPRATROPIUM BROM 0.5 MG/2.5ML INH SOL NEB PRN (18:51)
[2017-04-04] MEDS: ALBUTEROL SULF 2.5 MG/0.5ML(0.5%) NEB SOLN NEB PRN (18:51)
[2017-04-05] VITALS (106 sets, daily range): BP systolic 100–188; BP diastolic 62–109
[2017-04-05] MEDS: FREE WATER GT SCH ×4 (00:30→17:49)
[2017-04-05] MEDS: PIPERACILLIN-TAZOB 3.375GM 100 ML IV SCH ×5 (00:30→23:59)
[2017-04-05] MEDS: SODIUM CHLORIDE 0.9% 1,000 ML IV SCH ×2 (04:23→07:53)
[2017-04-05 05:30] LABS: Basophils # (auto) 0.1 uL; Basophils % (auto) 0.7 % (0.0-2.0); DEFINITIVE VIEW TRANSMISSION; Eosinophils # (auto) 0 uL; Eosinophils % (auto) 0.1 % (0.0-7.0); Hematocrit 40.7 % (36.0-46.0); Hemoglobin 11.9 g/dL (12.2-16.2); Lymphocytes # (auto) 0.7 uL; Lymphocytes % (auto) 5.5 % (10.0-50.0); Mean Corpuscular Hemoglobin 19.1 pg (28.0-32.0); Mean Corpuscular Hgb Conc. 29.4 g/dL (32.0-36.0); Mean Corpuscular Volume 64.9 fL (80.0-100.0); Mean Platelet Volume 7.7 fL (7.4-10.4); Neutrophils # (auto) 10.7 uL; Neutrophils % (auto) 85.7 % (37.0-80.0); Platelet Count (auto) 251 10^3/uL (140-450); SUSPECT VIEW TRANSMISSION; White Blood Cell 12.5 10^3/uL (4.4-10.8)
[2017-04-05 05:31] LABS: Red Cell Distribution Width 20.2 % (11.6-16.0)
[2017-04-05 05:38] LABS: Albumin 2.9 g/dL (3.4-5.0); BUN/Creatinine Ratio 27.4; Bilirubin, Total 0.8 mg/dL (0.2-1.0); Calcium 8.5 mg/dL (8.5-10.1); Potassium 3.3 mmol/L (3.5-5.1); Total Protein 6.6 g/dL (6.4-8.2)
[2017-04-05 06:17] LABS: Anisocytosis Moderate; Platelet Estimate Adequate
[2017-04-05 06:18] LABS: Hypochromia Marked; Microcytosis Marked; Ovalocytes FEW
[2017-04-05] MEDS: MIDAZOLAM DRIP 100 mg/100mL NS 100 ML IV SCH ×3 (07:52→20:00)
[2017-04-05] MEDS: methylPREDNISolone SOD SUCC 125 MG/2 ML VL IV SCH ×2 (07:52→22:45)
[2017-04-05] MEDS: DOPamine 1600MCG/ML 250 ML IV SCH (07:52)
[2017-04-05] MEDS: Nutren Pulmonary 1 Liter GT SCH (09:15)
[2017-04-05] MEDS: ENOXAPARIN SOD 40 MG/0.4 ML SYRINGE SC SCH (09:28)
[2017-04-05] MEDS: PANTOPRAZOLE SODIUM 40 MG/10 ML VIAL IV SCH ×2 (09:28→22:45)
[2017-04-05] MEDS: ASPirin 81 mg TAB NG SCH (09:28)
[2017-04-05] MEDS ORDERED: MICAFUNGIN SODIUM 100 MG in SODIUM CHL 0.9% 100 ML IV SCH (10:00)
[2017-04-05 10:06] LABS: Base Excess 5.3 mmol/L (-2.0-2.0); Blood 02Sat 94.1 % (96-100); Blood COHb 1.1 % (0.5-1.5); Blood MetHb 0.4 % (0.0-1.5); HCO3 30.8 mmol/L (22-26.0); HHb 5.8 % (0.0-5.0); MODE VENT - A/C; O2Hb 92.7 % (94.0-97.0); PCO2 48.5 mmHg (35.0-45.0); PCO2(T) 48.5 mmHg (35.0-45.0); PO2 76.9 mmHg (80.0-100.0); PO2(T) 76.9 mmHg (80.0-100.0); Sample Type Arterial; pH 7.421 (7.350-7.450)
[2017-04-05] MEDS: NOREPINEPHRINE BITARTRATE 250 ML IV SCH (10:32)
[2017-04-05] MEDS ORDERED: POTASSIUM CHLORIDE 40 MEQ, LIDOCAINE 1% (LOCAL ANESTH.) 4 ML in SODIUM CHL 0.9% 250 ML IV ONE (11:00)
[2017-04-05] MEDS: PROPOFOL 100 ML IV SCH ×2 (11:49→13:24)
[2017-04-05] MEDS ORDERED: cloNIDine HCL 0.1 MG TAB ONE (18:21)
[2017-04-05] MEDS: fentaNYL Drip 2500mCg/250mlNS 250 ML IV SCH (18:30)
[2017-04-05] MEDS: VANCOMYCIN 1,250 MG in D5W 5% 250 ML IV SCH (19:58)
[2017-04-06] VITALS (92 sets, daily range): BP systolic 110–173; BP diastolic 68–94
[2017-04-06] MEDS: FREE WATER GT SCH ×4 (00:01→18:08)
[2017-04-06] MEDS: SODIUM CHLORIDE 0.9% 1,000 ML IV SCH ×3 (00:02→20:23)
[2017-04-06] MEDS: cloNIDine HCL 0.1 MG TAB PO PRN ×2 (00:02→05:52)
[2017-04-06] MEDS: DOPamine 1600MCG/ML 250 ML IV SCH ×2 (01:05→18:00)
[2017-04-06] MEDS: PROPOFOL 100 ML IV SCH ×2 (03:00→15:59)
[2017-04-06] MEDS: MIDAZOLAM DRIP 100 mg/100mL NS 100 ML IV SCH ×2 (03:00→19:18)
[2017-04-06 04:41] LABS: DEFINITIVE VIEW TRANSMISSION; Hematocrit 44.1 % (36.0-46.0); Hemoglobin 13.2 g/dL (12.2-16.2); Mean Corpuscular Hemoglobin 19.5 pg (28.0-32.0); Mean Corpuscular Volume 64.9 fL (80.0-100.0); Mean Platelet Volume 8.1 fL (7.4-10.4); Platelet Count (auto) 296 10^3/uL (140-450); White Blood Cell 14.1 10^3/uL (4.4-10.8)
[2017-04-06 04:45] LABS: Red Cell Distribution Width 22.8 % (11.6-16.0)
[2017-04-06 04:46] LABS: Metamyelocytes % 0; Myelocytes % 0; Promyelocytes % 0; Reactive Lymphocytes 0
[2017-04-06 05:02] LABS: Albumin 2.9 g/dL (3.4-5.0); Calcium 8.3 mg/dL (8.5-10.1); Potassium 3.9 mmol/L (3.5-5.1)
[2017-04-06 05:11] LABS: BUN/Creatinine Ratio 27.9; Bilirubin, Total 0.9 mg/dL (0.2-1.0); Total Protein 6.5 g/dL (6.4-8.2)
[2017-04-06] MEDS: PIPERACILLIN-TAZOB 3.375GM 100 ML IV SCH ×3 (05:52→22:33)
[2017-04-06 06:30] LABS: Anisocytosis Moderate; Hypochromia Marked; Microcytosis Marked; Ovalocytes FEW; Platelet Estimate Adequate; Stomatocytes Few
[2017-04-06 06:31] LABS: Large Platelets FEW; Polychromasia Slight
[2017-04-06 08:52] LABS: Allen Test Yes; Blood 02Sat 94.4 % (96-100); Blood COHb 1.4 % (0.5-1.5); Blood MetHb 0.2 % (0.0-1.5); HCO3 27.7 mmol/L (22-26.0); HHb 5.5 % (0.0-5.0); MODE VENT - A/C; O2Hb 92.9 % (94.0-97.0); PCO2 42.8 mmHg (35.0-45.0); PCO2(T) 42.8 mmHg (35.0-45.0); PO2 75.3 mmHg (80.0-100.0); PO2(T) 75.3 mmHg (80.0-100.0); Sample Type Arterial; pH 7.429 (7.350-7.450)
[2017-04-06] MEDS: PANTOPRAZOLE SODIUM 40 MG/10 ML VIAL IV SCH ×2 (10:56→22:21)
[2017-04-06] MEDS: FLUCONAZOLE 200MG/100ML 100 ML IV SCH (10:56)
[2017-04-06] MEDS: methylPREDNISolone SOD SUCC 125 MG/2 ML VL IV SCH ×2 (10:56→22:22)
[2017-04-06] MEDS: ASPirin 81 mg TAB NG SCH (10:56)
[2017-04-06] MEDS: ENOXAPARIN SOD 40 MG/0.4 ML SYRINGE SC SCH (10:56)
[2017-04-06] MEDS: NOREPINEPHRINE BITARTRATE 250 ML IV SCH (13:00)
[2017-04-06] MEDS: VANCOMYCIN 1,250 MG in D5W 5% 250 ML IV SCH (20:00)
[2017-04-06] MEDS ORDERED: PIPERACILLIN-TAZOB 3.375GM 100 ML IV SCH (21:00)
[2017-04-06] MEDS: fentaNYL Drip 2500mCg/250mlNS 250 ML IV SCH (22:24)
[2017-04-07] VITALS (95 sets, daily range): BP systolic 102–173; BP diastolic 48–100
[2017-04-07 03:57] LABS: Basophils # (auto) 0 uL; Basophils % (auto) 0.1 % (0.0-2.0); DEFINITIVE VIEW TRANSMISSION; Eosinophils # (auto) 0.1 uL; Eosinophils % (auto) 0.5 % (0.0-7.0); Hematocrit 44.7 % (36.0-46.0); Hemoglobin 13.4 g/dL (12.2-16.2); Lymphocytes # (auto) 0.8 uL; Lymphocytes % (auto) 5.2 % (10.0-50.0); Mean Corpuscular Hemoglobin 19.3 pg (28.0-32.0); Mean Corpuscular Hgb Conc. 29.9 g/dL (32.0-36.0); Mean Corpuscular Volume 64.4 fL (80.0-100.0); Monocytes # (auto) 0.5 uL; Monocytes % (auto) 3.2 % (0.0-12.0); Neutrophils # (auto) 14.9 uL; Platelet Count (auto) 318 10^3/uL (140-450); White Blood Cell 16.3 10^3/uL (4.4-10.8)
[2017-04-07 04:20] LABS: Red Cell Distribution Width 22.9 % (11.6-16.0)
[2017-04-07 04:23] LABS: Albumin 2.9 g/dL (3.4-5.0); BUN/Creatinine Ratio 39.7; Calcium 8.1 mg/dL (8.5-10.1); Potassium 3.9 mmol/L (3.5-5.1)
[2017-04-07] MEDS: PIPERACILLIN-TAZOB 3.375GM 100 ML IV SCH ×4 (04:32→22:26)
[2017-04-07 04:35] LABS: Bilirubin, Total 0.9 mg/dL (0.2-1.0); Total Protein 6.2 g/dL (6.4-8.2)
[2017-04-07 05:13] LABS: Anisocytosis Moderate; Platelet Estimate Adequate
[2017-04-07 05:14] LABS: Hypochromia Marked; Microcytosis Marked
[2017-04-07 05:21] LABS: Ovalocytes FEW; Polychromasia Slight
[2017-04-07 05:22] LABS: Hypersegmented Neutrophils Present
[2017-04-07] MEDS: FREE WATER GT SCH ×4 (06:00→18:00)
[2017-04-07] MEDS: IPRATROPIUM BROM 0.5 MG/2.5ML INH SOL NEB PRN (06:20)
[2017-04-07] MEDS: ALBUTEROL SULF 2.5 MG/0.5ML(0.5%) NEB SOLN NEB PRN (06:20)
[2017-04-07] MEDS: SODIUM CHLORIDE 0.9% 1,000 ML IV SCH ×2 (06:23→11:23)
[2017-04-07 07:39] LABS: Allen Test Yes; Base Excess 3.7 mmol/L (-2.0-2.0); Blood 02Sat 93.7 % (96-100); Blood COHb 1.3 % (0.5-1.5); Blood MetHb 0.3 % (0.0-1.5); HHb 6.2 % (0.0-5.0); MODE VENT - A/C; O2Hb 92.2 % (94.0-97.0); PCO2 45.9 mmHg (35.0-45.0); PCO2(T) 45.9 mmHg (35.0-45.0); PO2 73.8 mmHg (80.0-100.0); PO2(T) 73.8 mmHg (80.0-100.0); Sample Type Arterial; pH 7.418 (7.350-7.450)
[2017-04-07] MEDS: ASPirin 81 mg TAB NG SCH (10:00)
[2017-04-07] MEDS: ENOXAPARIN SOD 40 MG/0.4 ML SYRINGE SC SCH (10:00)
[2017-04-07] MEDS: FLUCONAZOLE 200MG/100ML 100 ML IV SCH (10:00)
[2017-04-07] MEDS: PANTOPRAZOLE SODIUM 40 MG/10 ML VIAL IV SCH ×2 (10:00→22:25)
[2017-04-07] MEDS: fentaNYL Drip 2500mCg/250mlNS 250 ML IV SCH (10:00)
[2017-04-07] MEDS: methylPREDNISolone SOD SUCC 125 MG/2 ML VL IV SCH (10:00)
[2017-04-07] MEDS: NOREPINEPHRINE BITARTRATE 250 ML IV SCH (11:23)
[2017-04-07] MEDS: DOPamine 1600MCG/ML 250 ML IV SCH (12:49)
[2017-04-07 13:01] LABS: Allen Test Yes; Base Excess 2.7 mmol/L (-2.0-2.0); Blood 02Sat 93.1 % (96-100); Blood COHb 1.4 % (0.5-1.5); Blood MetHb 0.3 % (0.0-1.5); HCO3 26.6 mmol/L (22-26.0); HHb 6.8 % (0.0-5.0); MODE VENT - CPAP; O2Hb 91.5 % (94.0-97.0); PCO2(T) 38.8 mmHg (35.0-45.0); PO2(T) 69.9 mmHg (80.0-100.0); Pressure Support 8; Sample Type Arterial
[2017-04-07 15:11] LABS: INR 1.06 (0.9-1.15); Prothrombin Time 11.4 sec (9.37-12.3)
[2017-04-07] MEDS ORDERED: LIDOCAINE 1% HCL (LOCAL ANESTH.) INJ 20ML MDV ID ONE (16:00)
[2017-04-07] MEDS: SODIUM CHLOR 0.9% PF (SALINE LOCK) 10ML VIAL IV SCH (22:25)
[2017-04-07] MEDS: methylPREDNISolone SOD SUCC 40 MG/ML VL IV SCH (22:25)
[2017-04-08] VITALS (81 sets, daily range): BP systolic 117–179; BP diastolic 50–106
[2017-04-08] MEDS: MIDAZOLAM DRIP 100 mg/100mL NS 100 ML IV SCH (04:11)
[2017-04-08 05:23] LABS: Basophils # (auto) 0 uL; Basophils % (auto) 0.1 % (0.0-2.0); DEFINITIVE VIEW TRANSMISSION; Eosinophils # (auto) 0 uL; Eosinophils % (auto) 0.1 % (0.0-7.0); Hematocrit 38.9 % (36.0-46.0); Hemoglobin 11.7 g/dL (12.2-16.2); Lymphocytes # (auto) 0.8 uL; Lymphocytes % (auto) 6.9 % (10.0-50.0); Mean Corpuscular Hemoglobin 19.3 pg (28.0-32.0); Mean Corpuscular Volume 64.2 fL (80.0-100.0); Mean Platelet Volume 8.1 fL (7.4-10.4); Monocytes # (auto) 0.3 uL; Monocytes % (auto) 2.9 % (0.0-12.0); Neutrophils # (auto) 10.2 uL; Platelet Count (auto) 287 10^3/uL (140-450); White Blood Cell 11.4 10^3/uL (4.4-10.8)
[2017-04-08 05:24] LABS: Albumin 2.7 g/dL (3.4-5.0); BUN/Creatinine Ratio 44.3; Bilirubin, Total 0.7 mg/dL (0.2-1.0); Calcium 8.2 mg/dL (8.5-10.1); Potassium 3.3 mmol/L (3.5-5.1); Total Protein 5.7 g/dL (6.4-8.2)
[2017-04-08 05:30] LABS: Red Cell Distribution Width 22.1 % (11.6-16.0)
[2017-04-08] MEDS: SODIUM CHLORIDE 0.9% 1,000 ML IV SCH ×3 (05:46→22:23)
[2017-04-08] MEDS: PIPERACILLIN-TAZOB 3.375GM 100 ML IV SCH ×4 (06:00→23:40)
[2017-04-08] MEDS: FREE WATER GT SCH ×3 (06:00→11:46)
[2017-04-08 06:44] LABS: Hypersegmented Neutrophils Present; Hypochromia Marked; Microcytosis Marked; Polychromasia Slight
[2017-04-08 06:45] LABS: Anisocytosis Marked; Ovalocytes MODERATE; Platelet Estimate Adequate
[2017-04-08 08:43] LABS: Base Excess 6.7 mmol/L (-2.0-2.0); Blood 02Sat 95.5 % (96-100); Blood COHb 1.4 % (0.5-1.5); Blood MetHb 0.2 % (0.0-1.5); HCO3 29.6 mmol/L (22-26.0); HHb 4.4 % (0.0-5.0); MODE VENT - A/C; PCO2(T) 36.2 mmHg (35.0-45.0); PO2(T) 78.1 mmHg (80.0-100.0); Sample Type Arterial
[2017-04-08] MEDS: FLUCONAZOLE 200MG/100ML 100 ML IV SCH (09:15)
[2017-04-08] MEDS: ASPirin 81 mg TAB NG SCH (11:04)
[2017-04-08] MEDS: methylPREDNISolone SOD SUCC 40 MG/ML VL IV SCH ×2 (11:04→23:39)
[2017-04-08] MEDS: PANTOPRAZOLE SODIUM 40 MG/10 ML VIAL IV SCH ×2 (11:05→23:39)
[2017-04-08] MEDS: SODIUM CHLOR 0.9% PF (SALINE LOCK) 10ML VIAL IV SCH ×2 (11:05→22:00)
[2017-04-08] MEDS: ENOXAPARIN SOD 40 MG/0.4 ML SYRINGE SC SCH (11:06)
[2017-04-08 11:38] LABS: Base Excess 7.4 mmol/L (-2.0-2.0); Blood COHb 1.2 % (0.5-1.5); Blood MetHb 0.3 % (0.0-1.5); HCO3 30.1 mmol/L (22-26.0); HHb 6.9 % (0.0-5.0); MODE T-PIECE; O2Hb 91.6 % (94.0-97.0); PCO2(T) 35.6 mmHg (35.0-45.0); PO2(T) 63.4 mmHg (80.0-100.0); Sample Type Arterial
[2017-04-08] MEDS: NOREPINEPHRINE BITARTRATE 250 ML IV SCH (13:00)
[2017-04-08] MEDS: PROPOFOL 100 ML IV SCH (13:59)
[2017-04-08] MEDS: POTASSIUM CHL 20MEQ/100ML 100 ML IV SCH ×4 (14:00→17:00)
[2017-04-08] MEDS: VANCOMYCIN 1GM/250ML D5W 250 ML IV SCH (23:40)
[2017-04-08] MEDS: cloNIDine HCL 0.1 MG TAB PO PRN (23:41)
[2017-04-09] VITALS (25 sets, daily range): BP systolic 122–183; BP diastolic 68–98
[2017-04-09 04:01] LABS: DEFINITIVE VIEW TRANSMISSION; Hematocrit 33.4 % (36.0-46.0); Hemoglobin 10.1 g/dL (12.2-16.2); Mean Corpuscular Hemoglobin 19.6 pg (28.0-32.0); Mean Corpuscular Hgb Conc. 30.2 g/dL (32.0-36.0); Mean Corpuscular Volume 65.1 fL (80.0-100.0); Mean Platelet Volume 8.1 fL (7.4-10.4); Platelet Count (auto) 302 10^3/uL (140-450); SUSPECT VIEW TRANSMISSION; White Blood Cell 21.5 10^3/uL (4.4-10.8)
[2017-04-09] MEDS: MIDAZOLAM DRIP 100 mg/100mL NS 100 ML IV SCH (04:11)
[2017-04-09] MEDS: fentaNYL Drip 2500mCg/250mlNS 250 ML IV SCH ×2 (04:11→23:23)
[2017-04-09 04:15] LABS: Red Cell Distribution Width 22.9 % (11.6-16.0)
[2017-04-09 04:16] LABS: Metamyelocytes % 0; Promyelocytes % 0; Reactive Lymphocytes 0
[2017-04-09 04:19] LABS: Albumin 2.5 g/dL (3.4-5.0); BUN/Creatinine Ratio 44.3; Calcium 8.2 mg/dL (8.5-10.1); Potassium 3.5 mmol/L (3.5-5.1)
[2017-04-09 04:22] LABS: Bilirubin, Total 1.2 mg/dL (0.2-1.0); Total Protein 5.4 g/dL (6.4-8.2)
[2017-04-09 05:46] LABS: Anisocytosis Marked; Hypersegmented Neutrophils Present; Hypochromia Marked; Microcytosis Marked; Myelocytes % 1; Platelet Estimate Adequate
[2017-04-09 05:47] LABS: Ovalocytes MODERATE
[2017-04-09] MEDS: PIPERACILLIN-TAZOB 3.375GM 100 ML IV SCH ×4 (06:00→23:01)
[2017-04-09] MEDS: ALBUTEROL SULF 2.5 MG/0.5ML(0.5%) NEB SOLN NEB PRN (07:03)
[2017-04-09] MEDS: IPRATROPIUM BROM 0.5 MG/2.5ML INH SOL NEB PRN (07:03)
[2017-04-09] MEDS: SODIUM CHLORIDE 0.9% 1,000 ML IV SCH ×2 (08:23→18:23)
[2017-04-09] MEDS: FLUCONAZOLE 200MG/100ML 100 ML IV SCH (08:38)
[2017-04-09] MEDS: VANCOMYCIN 1GM/250ML D5W 250 ML IV SCH (09:56)
[2017-04-09] MEDS: PANTOPRAZOLE SODIUM 40 MG/10 ML VIAL IV SCH ×2 (09:56→23:00)
[2017-04-09] MEDS: SODIUM CHLOR 0.9% PF (SALINE LOCK) 10ML VIAL IV SCH ×2 (09:57→22:00)
[2017-04-09] MEDS: ENOXAPARIN SOD 40 MG/0.4 ML SYRINGE SC SCH (09:57)
[2017-04-09] MEDS: methylPREDNISolone SOD SUCC 40 MG/ML VL IV SCH (09:57)
[2017-04-09] MEDS: ASPirin 81 mg TAB NG SCH (09:57)
[2017-04-09] MEDS: BOOST 8 ounces PO SCH ×2 (12:00→18:00)
[2017-04-09] MEDS: metroNIDAZOLE 500 MG TAB PO SCH ×3 (12:00→23:01)
[2017-04-09] MEDS: PROPOFOL 100 ML IV SCH (12:00)
[2017-04-09] MEDS: NOREPINEPHRINE BITARTRATE 250 ML IV SCH (13:00)
[2017-04-09] MEDS ORDERED: VANCOMYCIN 1GM/250ML D5W 250 ML IV ONE (23:08)
[2017-04-09] MEDS: VANCOMYCIN 1,250 MG in D5W 5% 250 ML IV SCH (23:14)
[2017-04-10] VITALS (39 sets, daily range): BP systolic 106–160; BP diastolic 55–104
[2017-04-10 03:48] LABS: Basophils # (auto) 0 uL; Basophils % (auto) 0.1 % (0.0-2.0); DEFINITIVE VIEW TRANSMISSION; Eosinophils # (auto) 0.1 uL; Eosinophils % (auto) 0.4 % (0.0-7.0); Hematocrit 27.3 % (36.0-46.0); Hemoglobin 8.4 g/dL (12.2-16.2); Lymphocytes # (auto) 2.9 uL; Lymphocytes % (auto) 15.5 % (10.0-50.0); Mean Corpuscular Hemoglobin 20.1 pg (28.0-32.0); Mean Corpuscular Hgb Conc. 30.8 g/dL (32.0-36.0); Mean Corpuscular Volume 65.3 fL (80.0-100.0); Mean Platelet Volume 8.1 fL (7.4-10.4); Monocytes # (auto) 1.3 uL; Monocytes % (auto) 7.2 % (0.0-12.0); Neutrophils # (auto) 14.2 uL; Neutrophils % (auto) 76.8 % (37.0-80.0); Platelet Count (auto) 304 10^3/uL (140-450); White Blood Cell 18.5 10^3/uL (4.4-10.8)
[2017-04-10 04:00] LABS: Calcium 8.1 mg/dL (8.5-10.1); Potassium 3.2 mmol/L (3.5-5.1)
[2017-04-10 04:04] LABS: Albumin 2.5 g/dL (3.4-5.0); BUN/Creatinine Ratio 31.4
[2017-04-10 04:06] LABS: Bilirubin, Total 0.7 mg/dL (0.2-1.0); Total Protein 5.2 g/dL (6.4-8.2)
[2017-04-10] MEDS: MIDAZOLAM DRIP 100 mg/100mL NS 100 ML IV SCH (04:11)
[2017-04-10 04:22] LABS: Red Cell Distribution Width 22.5 % (11.6-16.0)
[2017-04-10] MEDS ORDERED: LORazepam 2MG/ML-1ML VIAL ONE ×3 (05:09→07:30)
[2017-04-10 05:20] LABS: Anisocytosis Marked; Hypersegmented Neutrophils Present; Hypochromia Marked; Microcytosis Marked; Ovalocytes MODERATE; Platelet Estimate Adequate
[2017-04-10] MEDS: metroNIDAZOLE 500 MG TAB PO SCH ×3 (06:00→21:38)
[2017-04-10] MEDS: PIPERACILLIN-TAZOB 3.375GM 100 ML IV SCH ×3 (07:00→18:30)
[2017-04-10] MEDS ORDERED: PHENYTOIN IV DILANTIN 1,000 MG in SODIUM CHL 0.9% 250 ML IV ONE (07:45)
[2017-04-10] MEDS ORDERED: LORazepam 2MG/ML-1ML VIAL IV PRN (07:45)
[2017-04-10] MEDS: BOOST 8 ounces PO SCH ×3 (08:00→18:00)
[2017-04-10] MEDS: ASPirin 81 mg TAB NG SCH (10:00)
[2017-04-10] MEDS: PANTOPRAZOLE SODIUM 40 MG/10 ML VIAL IV SCH ×2 (10:30→21:38)
[2017-04-10] MEDS: SODIUM CHLOR 0.9% PF (SALINE LOCK) 10ML VIAL IV SCH ×2 (10:30→21:39)
[2017-04-10] MEDS: ENOXAPARIN SOD 40 MG/0.4 ML SYRINGE SC SCH (10:30)
[2017-04-10] MEDS: VANCOMYCIN 1,250 MG in D5W 5% 250 ML IV SCH ×2 (10:30→21:39)
[2017-04-10] MEDS: PROPOFOL 100 ML IV SCH (12:00)
[2017-04-10] MEDS: NOREPINEPHRINE BITARTRATE 250 ML IV SCH (13:00)
[2017-04-10] MEDS: FLUCONAZOLE 200MG/100ML 100 ML IV SCH (13:20)
[2017-04-10] MEDS: PHENYTOIN SODIUM 50 MG/ML 2ML VIAL IV SCH ×2 (14:10→21:39)
[2017-04-10] MEDS: SODIUM CHLORIDE 0.9% 1,000 ML IV SCH (14:23)
[2017-04-10 17:25] LABS: REFLEX LACTIC ACID YES OR NO YES
[2017-04-10] MEDS: VANCOMYCIN HCL 125MG/5ML ORAL SOL GT SCH ×2 (18:30→21:38)
[2017-04-10] MEDS ORDERED: PIPERACILLIN-TAZOB 3.375GM 100 ML IV ONE (23:50)
[2017-04-11] VITALS (90 sets, daily range): BP systolic 93–169; BP diastolic 46–105
[2017-04-11] MEDS: PIPERACILLIN-TAZOB 3.375GM 100 ML IV SCH ×4 (00:01→18:01)
[2017-04-11] MEDS: SODIUM CHLORIDE 0.9% 1,000 ML IV SCH ×3 (00:02→15:28)
[2017-04-11] MEDS: fentaNYL Drip 2500mCg/250mlNS 250 ML IV SCH (00:03)
[2017-04-11] MEDS: MIDAZOLAM DRIP 100 mg/100mL NS 100 ML IV SCH (00:04)
[2017-04-11] MEDS: VANCOMYCIN HCL 125MG/5ML ORAL SOL GT SCH ×4 (05:55→21:27)
[2017-04-11] MEDS: metroNIDAZOLE 500 MG TAB PO SCH ×3 (05:55→21:28)
[2017-04-11] MEDS: PHENYTOIN SODIUM 50 MG/ML 2ML VIAL IV SCH ×3 (05:55→21:28)
[2017-04-11] MEDS: BOOST 8 ounces PO SCH ×3 (08:00→18:00)
[2017-04-11] MEDS ORDERED: LORazepam 2MG/ML-1ML VIAL IV PRN (09:15)
[2017-04-11] MEDS: FLUCONAZOLE 200MG/100ML 100 ML IV SCH (09:21)
[2017-04-11] MEDS: SODIUM CHLOR 0.9% PF (SALINE LOCK) 10ML VIAL IV SCH ×2 (09:21→21:49)
[2017-04-11] MEDS: PANTOPRAZOLE SODIUM 40 MG/10 ML VIAL IV SCH ×2 (09:42→21:28)
[2017-04-11] MEDS: ASPirin 81 mg TAB NG SCH (09:42)
[2017-04-11] MEDS: ENOXAPARIN SOD 40 MG/0.4 ML SYRINGE SC SCH (09:42)
[2017-04-11] MEDS: VANCOMYCIN 1,250 MG in D5W 5% 250 ML IV SCH ×2 (10:08→21:28)
[2017-04-11] MEDS: PROPOFOL 100 ML IV SCH (12:00)
[2017-04-11] MEDS: NOREPINEPHRINE BITARTRATE 250 ML IV SCH (13:00)
[2017-04-11] MEDS: ACETAMINOPHEN 650 mg PER 20 mL UD GT PRN (21:28)
[2017-04-12] VITALS (27 sets, daily range): BP systolic 113–166; BP diastolic 52–92
[2017-04-12] MEDS: PIPERACILLIN-TAZOB 3.375GM 100 ML IV SCH ×4 (00:03→17:54)
[2017-04-12] MEDS: MIDAZOLAM DRIP 100 mg/100mL NS 100 ML IV SCH (03:46)
[2017-04-12] MEDS: fentaNYL Drip 2500mCg/250mlNS 250 ML IV SCH (03:46)
[2017-04-12 04:32] LABS: Basophils # (auto) 0.1 uL; Basophils % (auto) 0.4 % (0.0-2.0); DEFINITIVE VIEW TRANSMISSION; Eosinophils # (auto) 0.5 uL; Eosinophils % (auto) 3.5 % (0.0-7.0); Hemoglobin 8.3 g/dL (12.2-16.2); Lymphocytes # (auto) 2.7 uL; Lymphocytes % (auto) 17.5 % (10.0-50.0); Mean Corpuscular Hgb Conc. 30.6 g/dL (32.0-36.0); Mean Corpuscular Volume 65.3 fL (80.0-100.0); Mean Platelet Volume 8.1 fL (7.4-10.4); Monocytes # (auto) 1.1 uL; Monocytes % (auto) 7.1 % (0.0-12.0); Neutrophils % (auto) 71.5 % (37.0-80.0); Platelet Count (auto) 390 10^3/uL (140-450); SUSPECT VIEW TRANSMISSION; White Blood Cell 15.4 10^3/uL (4.4-10.8)
[2017-04-12 04:41] LABS: BUN/Creatinine Ratio 9.5; Calcium 7.7 mg/dL (8.5-10.1)
[2017-04-12 05:08] LABS: Red Cell Distribution Width 22.7 % (11.6-16.0)
[2017-04-12 05:13] LABS: Potassium 2.3 mmol/L (3.5-5.1)
[2017-04-12] MEDS: ACETAMINOPHEN 650 mg PER 20 mL UD GT PRN (06:00)
[2017-04-12] MEDS: VANCOMYCIN HCL 125MG/5ML ORAL SOL GT SCH ×4 (06:00→22:07)
[2017-04-12] MEDS: PHENYTOIN SODIUM 50 MG/ML 2ML VIAL IV SCH ×3 (06:00→22:11)
[2017-04-12] MEDS: metroNIDAZOLE 500 MG TAB PO SCH ×3 (06:00→22:10)
[2017-04-12] MEDS: SODIUM CHLORIDE 0.9% 1,000 ML IV SCH ×2 (06:46→16:23)
[2017-04-12] MEDS: POTASSIUM CHL 20MEQ/100ML 100 ML IV SCH ×4 (07:23→12:23)
[2017-04-12] MEDS: BOOST 8 ounces PO SCH ×3 (08:00→17:55)
[2017-04-12 08:32] LABS: Anisocytosis Moderate; Hypochromia Moderate; Platelet Estimate Adequate
[2017-04-12 08:33] LABS: Microcytosis Moderate; Ovalocytes FEW
[2017-04-12] MEDS: FLUCONAZOLE 200MG/100ML 100 ML IV SCH (09:11)
[2017-04-12] MEDS: ASPirin 81 mg TAB NG SCH (10:00)
[2017-04-12] MEDS: ENOXAPARIN SOD 40 MG/0.4 ML SYRINGE SC SCH (10:00)
[2017-04-12] MEDS: SODIUM CHLOR 0.9% PF (SALINE LOCK) 10ML VIAL IV SCH ×2 (10:04→22:11)
[2017-04-12] MEDS: VANCOMYCIN 1,250 MG in D5W 5% 250 ML IV SCH ×2 (10:04→22:06)
[2017-04-12] MEDS: PANTOPRAZOLE SODIUM 40 MG/10 ML VIAL IV SCH ×2 (10:04→22:11)
[2017-04-13] MEDS: PIPERACILLIN-TAZOB 3.375GM 100 ML IV SCH ×4 (01:08→17:33)
[2017-04-13] MEDS: SODIUM CHLORIDE 0.9% 1,000 ML IV SCH ×3 (02:23→21:16)
[2017-04-13] MEDS: VANCOMYCIN HCL 125MG/5ML ORAL SOL GT SCH ×2 (05:17→12:04)
[2017-04-13] MEDS: PHENYTOIN SODIUM 50 MG/ML 2ML VIAL IV SCH ×3 (05:17→21:14)
[2017-04-13] MEDS: metroNIDAZOLE 500 MG TAB PO SCH ×3 (05:18→21:15)
[2017-04-13 06:10] VITALS: BP 129/70
[2017-04-13] MEDS ORDERED: NITROGLYCERIN 0.4 MG SL TAB SL PRN ×2 (07:00)
[2017-04-13] MEDS ORDERED: MORPHINE SULF INJ 2 MG/ML SYRINGE 1ML IV PRN ×2 (07:00)
[2017-04-13] MEDS ORDERED: ACETAMINOPHEN 650 mg PER 20 mL UD PO PRN (07:15)
[2017-04-13] MEDS ORDERED: ACETAMINOPHEN 325 MG TAB PO PRN (07:15)
[2017-04-13] MEDS: BOOST 8 ounces PO SCH ×3 (08:00→17:36)
[2017-04-13 08:36] VITALS: BP 142/85
[2017-04-13] MEDS: ASPirin 81 mg TAB PO SCH (08:50)
[2017-04-13] MEDS: FLUCONAZOLE 200MG/100ML 100 ML IV SCH (08:50)
[2017-04-13] MEDS: PANTOPRAZOLE SODIUM 40 MG/10 ML VIAL IV SCH ×2 (08:50→21:14)
[2017-04-13] MEDS: ENOXAPARIN SOD 40 MG/0.4 ML SYRINGE SC SCH (08:50)
[2017-04-13] MEDS: SODIUM CHLOR 0.9% PF (SALINE LOCK) 10ML VIAL IV SCH ×2 (08:52→21:15)
[2017-04-13] MEDS: VANCOMYCIN 1,250 MG in D5W 5% 250 ML IV SCH ×2 (09:50→21:15)
[2017-04-13] MEDS ORDERED: ASPirin 81 mg TAB PO SCH (10:00)
[2017-04-13 12:54] VITALS: BP 137/81
[2017-04-13 13:49] LABS: Basophils # (auto) 0 uL; DEFINITIVE VIEW TRANSMISSION; Eosinophils # (auto) 0.5 uL; Eosinophils % (auto) 3.7 % (0.0-7.0); Hematocrit 27.8 % (36.0-46.0); Hemoglobin 8.7 g/dL (12.2-16.2); Lymphocytes # (auto) 2.5 uL; Lymphocytes % (auto) 19.6 % (10.0-50.0); Mean Corpuscular Hemoglobin 20.3 pg (28.0-32.0); Mean Corpuscular Hgb Conc. 31.2 g/dL (32.0-36.0); Mean Corpuscular Volume 64.9 fL (80.0-100.0); Monocytes # (auto) 1.1 uL; Neutrophils # (auto) 8.6 uL; Neutrophils % (auto) 67.7 % (37.0-80.0); Platelet Count (auto) 489 10^3/uL (140-450); Red Cell Distribution Width 23.5 % (11.6-16.0); SUSPECT VIEW TRANSMISSION; White Blood Cell 12.7 10^3/uL (4.4-10.8)
[2017-04-13 13:55] LABS: Albumin 2.5 g/dL (3.4-5.0); BUN/Creatinine Ratio 2.9; Calcium 7.7 mg/dL (8.5-10.1)
[2017-04-13 13:58] LABS: Bilirubin, Total 0.4 mg/dL (0.2-1.0); Total Protein 5.5 g/dL (6.4-8.2)
[2017-04-13] MEDS ORDERED: SODIUM CHLOR 0.9% PF (SALINE LOCK) 10ML VIAL IV SCH (14:00)
[2017-04-13 14:11] LABS: Potassium 2.2 mmol/L (3.5-5.1)
[2017-04-13] MEDS: POTASSIUM CHL 20MEQ/100ML 100 ML IV SCH ×2 (14:27→16:13)
[2017-04-13 15:05] LABS: Anisocytosis Moderate; Platelet Estimate Increased
[2017-04-13 15:06] LABS: Hypochromia Marked; Microcytosis Marked; Ovalocytes MODERATE; Tear Drop Cells FEW
[2017-04-13 16:59] VITALS: BP 140/83
[2017-04-13] MEDS: VANCOMYCIN HCL 125MG/5ML ORAL SOL PO SCH ×2 (17:43→21:14)
[2017-04-13] MEDS ORDERED: LORazepam 2MG/ML-1ML VIAL IV PRN (19:45)
[2017-04-13 22:00] VITALS: BP 147/77
[2017-04-13] MEDS: POTASSIUM CHL 20 Meq TABLET PO SCH (23:28)
[2017-04-14] MEDS: PIPERACILLIN-TAZOB 3.375GM 100 ML IV SCH ×4 (00:16→18:12)
[2017-04-14] MEDS: POTASSIUM CHL 20 Meq TABLET PO SCH ×2 (01:37→21:56)
[2017-04-14 05:00] VITALS: BP 155/80
[2017-04-14] MEDS: PHENYTOIN SODIUM 50 MG/ML 2ML VIAL IV SCH ×3 (05:07→21:55)
[2017-04-14] MEDS: VANCOMYCIN HCL 125MG/5ML ORAL SOL PO SCH ×4 (05:08→21:55)
[2017-04-14] MEDS: metroNIDAZOLE 500 MG TAB PO SCH ×3 (05:09→22:00)
[2017-04-14] MEDS: BOOST 8 ounces PO SCH ×3 (08:00→18:12)
[2017-04-14] MEDS: FLUCONAZOLE 200MG/100ML 100 ML IV SCH (08:43)
[2017-04-14] MEDS: SODIUM CHLORIDE 0.9% 1,000 ML IV SCH ×2 (08:43→18:13)
[2017-04-14 09:00] VITALS: BP 141/73
[2017-04-14 09:10] LABS: Basophils # (auto) 0.1 uL; Basophils % (auto) 0.7 % (0.0-2.0); DEFINITIVE VIEW TRANSMISSION; Eosinophils # (auto) 0.5 uL; Eosinophils % (auto) 4.5 % (0.0-7.0); Hematocrit 29.1 % (36.0-46.0); Hemoglobin 8.9 g/dL (12.2-16.2); Lymphocytes # (auto) 1.5 uL; Lymphocytes % (auto) 13.6 % (10.0-50.0); Mean Corpuscular Hemoglobin 20.2 pg (28.0-32.0); Mean Corpuscular Hgb Conc. 30.4 g/dL (32.0-36.0); Mean Corpuscular Volume 66.5 fL (80.0-100.0); Mean Platelet Volume 7.9 fL (7.4-10.4); Monocytes # (auto) 1.3 uL; Monocytes % (auto) 11.4 % (0.0-12.0); Neutrophils # (auto) 7.7 uL; Neutrophils % (auto) 69.8 % (37.0-80.0); Platelet Count (auto) 509 10^3/uL (140-450)
[2017-04-14 09:40] VITALS: BP 140/83
[2017-04-14 09:46] LABS: Albumin 2.7 g/dL (3.4-5.0); BUN/Creatinine Ratio 2.7; Bilirubin, Total 0.5 mg/dL (0.2-1.0); Total Protein 5.9 g/dL (6.4-8.2)
[2017-04-14 09:54] LABS: Potassium 2.5 mmol/L (3.5-5.1)
[2017-04-14] MEDS: ASPirin 81 mg TAB PO SCH ×2 (10:00→10:06)
[2017-04-14] MEDS: ENOXAPARIN SOD 40 MG/0.4 ML SYRINGE SC SCH ×2 (10:00→10:06)
[2017-04-14] MEDS: PANTOPRAZOLE SODIUM 40 MG/10 ML VIAL IV SCH ×3 (10:00→21:56)
[2017-04-14] MEDS: cloNIDine HCL 0.1 MG TAB PO PRN (10:05)
[2017-04-14] MEDS: VANCOMYCIN 1,250 MG in D5W 5% 250 ML IV SCH ×2 (10:06→21:56)
[2017-04-14] MEDS: SODIUM CHLOR 0.9% PF (SALINE LOCK) 10ML VIAL IV SCH ×2 (10:07→21:56)
[2017-04-14 10:40] LABS: Anisocytosis Moderate; Hypochromia Moderate; Ovalocytes MODERATE; Platelet Estimate Increased
[2017-04-14 10:41] LABS: Large Platelets FEW; Microcytosis Marked
[2017-04-14] MEDS: POTASSIUM CHL 20MEQ/100ML 100 ML IV SCH ×2 (11:05→12:41)
[2017-04-14] MEDS: METHADONE HCL 10 MG TAB PO SCH (11:52)
[2017-04-14 13:00] VITALS: BP 142/83
[2017-04-14 16:52] VITALS: BP 129/69
[2017-04-14 22:00] VITALS: BP 126/78
[2017-04-15] VITALS (7 sets, daily range): BP systolic 124–140; BP diastolic 71–92
[2017-04-15] MEDS: SODIUM CHLORIDE 0.9% 1,000 ML IV SCH ×2 (04:23→14:23)
[2017-04-15] MEDS: VANCOMYCIN HCL 125MG/5ML ORAL SOL PO SCH ×4 (05:40→21:25)
[2017-04-15] MEDS: metroNIDAZOLE 500 MG TAB PO SCH ×3 (05:40→21:25)
[2017-04-15] MEDS: PIPERACILLIN-TAZOB 3.375GM 100 ML IV SCH ×2 (05:40)
[2017-04-15] MEDS: PHENYTOIN SODIUM 50 MG/ML 2ML VIAL IV SCH ×3 (05:41→21:30)
[2017-04-15 05:59] LABS: Basophils # (auto) 0.1 uL; Basophils % (auto) 0.4 % (0.0-2.0); DEFINITIVE VIEW TRANSMISSION; Eosinophils # (auto) 0.5 uL; Eosinophils % (auto) 4.2 % (0.0-7.0); Hematocrit 27.3 % (36.0-46.0); Hemoglobin 8.3 g/dL (12.2-16.2); Lymphocytes # (auto) 1.7 uL; Lymphocytes % (auto) 14.6 % (10.0-50.0); Mean Corpuscular Hemoglobin 20.5 pg (28.0-32.0); Mean Corpuscular Hgb Conc. 30.6 g/dL (32.0-36.0); Mean Platelet Volume 7.7 fL (7.4-10.4); Monocytes # (auto) 1.2 uL; Monocytes % (auto) 9.8 % (0.0-12.0); Neutrophils # (auto) 8.5 uL; Platelet Count (auto) 522 10^3/uL (140-450)
[2017-04-15 06:11] LABS: Red Cell Distribution Width 24.8 % (11.6-16.0)
[2017-04-15 06:40] LABS: Hypersegmented Neutrophils Present; Platelet Estimate Increased
[2017-04-15 06:41] LABS: Anisocytosis Moderate; Hypochromia Moderate; Microcytosis Marked; Ovalocytes MODERATE
[2017-04-15] MEDS: BOOST 8 ounces PO SCH ×3 (08:00→18:10)
[2017-04-15] MEDS ORDERED: POTASSIUM CHLORIDE 20 MEQ, LIDOCAINE 1% (LOCAL ANESTH.) 2 ML in SODIUM CHL 0.9% 100 ML IV ONE ×2 (09:00→11:00)
[2017-04-15] MEDS ORDERED: POTASSIUM CHLORIDE 40 MEQ, LIDOCAINE 1% (LOCAL ANESTH.) 4 ML in SODIUM CHL 0.9% 250 ML IV SCH ×2 (09:45→13:00)
[2017-04-15] MEDS: POTASSIUM CHL 20 Meq TABLET PO SCH ×2 (09:52→21:26)
[2017-04-15] MEDS: FLUCONAZOLE 200MG/100ML 100 ML IV SCH (09:52)
[2017-04-15] MEDS: ENOXAPARIN SOD 40 MG/0.4 ML SYRINGE SC SCH (09:52)
[2017-04-15] MEDS: ASPirin 81 mg TAB PO SCH (09:53)
[2017-04-15] MEDS: METHADONE HCL 10 MG TAB PO SCH (09:53)
[2017-04-15] MEDS: PANTOPRAZOLE SODIUM 40 MG/10 ML VIAL IV SCH ×2 (09:53→21:30)
[2017-04-15] MEDS: SODIUM CHLOR 0.9% PF (SALINE LOCK) 10ML VIAL IV SCH ×2 (10:00→21:25)
[2017-04-16] VITALS (7 sets, daily range): BP systolic 95–138; BP diastolic 67–91
[2017-04-16] MEDS: SODIUM CHLORIDE 0.9% 1,000 ML IV SCH ×3 (01:35→20:23)
[2017-04-16] MEDS: PHENYTOIN SODIUM 50 MG/ML 2ML VIAL IV SCH ×3 (06:57→17:03)
[2017-04-16] MEDS: VANCOMYCIN HCL 125MG/5ML ORAL SOL PO SCH ×4 (06:57→22:13)
[2017-04-16] MEDS: metroNIDAZOLE 500 MG TAB PO SCH (06:58)
[2017-04-16 07:07] LABS: Basophils # (auto) 0.1 uL; Basophils % (auto) 0.5 % (0.0-2.0); DEFINITIVE VIEW TRANSMISSION; Eosinophils # (auto) 0.5 uL; Eosinophils % (auto) 3.4 % (0.0-7.0); Hematocrit 26.6 % (36.0-46.0); Hemoglobin 8.3 g/dL (12.2-16.2); Lymphocytes # (auto) 2.1 uL; Lymphocytes % (auto) 15.9 % (10.0-50.0); Mean Corpuscular Hemoglobin 20.8 pg (28.0-32.0); Mean Corpuscular Hgb Conc. 31.1 g/dL (32.0-36.0); Mean Corpuscular Volume 66.9 fL (80.0-100.0); Mean Platelet Volume 7.7 fL (7.4-10.4); Monocytes % (auto) 7.2 % (0.0-12.0); Neutrophils # (auto) 9.7 uL; Platelet Count (auto) 503 10^3/uL (140-450); SUSPECT VIEW TRANSMISSION; White Blood Cell 13.2 10^3/uL (4.4-10.8)
[2017-04-16 07:22] LABS: Red Cell Distribution Width 25.6 % (11.6-16.0)
[2017-04-16 07:28] LABS: Albumin 2.4 g/dL (3.4-5.0); BUN/Creatinine Ratio 8.1; Bilirubin, Total 0.4 mg/dL (0.2-1.0); Calcium 7.4 mg/dL (8.5-10.1); Potassium 4.5 mmol/L (3.5-5.1); Total Protein 5.7 g/dL (6.4-8.2)
[2017-04-16 07:53] LABS: Platelet Estimate Increased
[2017-04-16 07:54] LABS: Anisocytosis Moderate; Hypochromia Moderate; Microcytosis Moderate; Schistocytes FEW
[2017-04-16] MEDS: BOOST 8 ounces PO SCH ×3 (08:00→18:00)
[2017-04-16] MEDS: METHADONE HCL 10 MG TAB PO SCH (09:49)
[2017-04-16] MEDS: PANTOPRAZOLE SODIUM 40 MG/10 ML VIAL IV SCH (09:50)
[2017-04-16] MEDS: POTASSIUM CHL 20 Meq TABLET PO SCH ×2 (09:50→22:14)
[2017-04-16] MEDS: ASPirin 81 mg TAB PO SCH (09:50)
[2017-04-16] MEDS: ENOXAPARIN SOD 40 MG/0.4 ML SYRINGE SC SCH (09:55)
[2017-04-16] MEDS: SODIUM CHLOR 0.9% PF (SALINE LOCK) 10ML VIAL IV SCH ×2 (10:00→22:13)
[2017-04-16] MEDS: FLUCONAZOLE 200MG/100ML 100 ML IV SCH (16:14)
[2017-04-16] MEDS: metroNIDAZOLE 500MG/100ML 100 ML IV SCH (18:17)
[2017-04-17] MEDS: metroNIDAZOLE 500MG/100ML 100 ML IV SCH ×4 (00:11→18:00)
[2017-04-17 05:00] VITALS: BP 140/80
[2017-04-17] MEDS: PHENYTOIN SODIUM 50 MG/ML 2ML VIAL IV SCH ×2 (05:52→16:38)
[2017-04-17] MEDS: VANCOMYCIN HCL 125MG/5ML ORAL SOL PO SCH ×3 (05:52→18:00)
[2017-04-17] MEDS: SODIUM CHLORIDE 0.9% 1,000 ML IV SCH ×2 (06:23→16:23)
[2017-04-17 06:36] LABS: Basophils # (auto) 0 uL; Basophils % (auto) 0.5 % (0.0-2.0); DEFINITIVE VIEW TRANSMISSION; Eosinophils # (auto) 0.4 uL; Eosinophils % (auto) 3.7 % (0.0-7.0); Hematocrit 25.8 % (36.0-46.0); Hemoglobin 8.1 g/dL (12.2-16.2); Lymphocytes # (auto) 1.6 uL; Lymphocytes % (auto) 15.9 % (10.0-50.0); Mean Corpuscular Hemoglobin 20.9 pg (28.0-32.0); Mean Corpuscular Hgb Conc. 31.2 g/dL (32.0-36.0); Mean Corpuscular Volume 66.8 fL (80.0-100.0); Mean Platelet Volume 7.6 fL (7.4-10.4); Monocytes # (auto) 0.7 uL; Monocytes % (auto) 7.2 % (0.0-12.0); Neutrophils # (auto) 7.2 uL; Neutrophils % (auto) 72.7 % (37.0-80.0); Platelet Count (auto) 497 10^3/uL (140-450); SUSPECT VIEW TRANSMISSION
[2017-04-17 07:24] LABS: Albumin 2.4 g/dL (3.4-5.0); BUN/Creatinine Ratio 8.1; Bilirubin, Total 0.3 mg/dL (0.2-1.0); Calcium 7.9 mg/dL (8.5-10.1); Potassium 4.8 mmol/L (3.5-5.1); Total Protein 5.8 g/dL (6.4-8.2)
[2017-04-17 07:52] LABS: Anisocytosis Moderate; Platelet Estimate Increased
[2017-04-17 07:53] LABS: Hypochromia Moderate; Microcytosis Moderate; Ovalocytes FEW
[2017-04-17 08:00] VITALS: BP 147/68
[2017-04-17] MEDS: BOOST 8 ounces PO SCH ×3 (08:00→18:07)
[2017-04-17] MEDS: FLUCONAZOLE 200MG/100ML 100 ML IV SCH (08:33)
[2017-04-17 09:00] VITALS: BP 130/73
[2017-04-17] MEDS: METHADONE HCL 10 MG TAB PO SCH (09:39)
[2017-04-17] MEDS: POTASSIUM CHL 20 Meq TABLET PO SCH (09:39)
[2017-04-17] MEDS: ASPirin 81 mg TAB PO SCH (09:41)
[2017-04-17] MEDS: SODIUM CHLOR 0.9% PF (SALINE LOCK) 10ML VIAL IV SCH (09:41)
[2017-04-17] MEDS: ENOXAPARIN SOD 40 MG/0.4 ML SYRINGE SC SCH (09:41)
[2017-04-17 09:51] VITALS: BP 130/73
[2017-04-17 11:21] VITALS: BP 130/70
[2017-04-17 13:00] VITALS: BP 151/101
== END 2017-04-17 18:30 | disposition home or self-care (01) | DRG 720 ==
LOC: EDBD 01:39 → ER 01:44 → EDUNIT# 01:45 → TELE 01:45 → ICU WEST 17:48 → TELE-EAST 04-12 19:40
PROVIDERS: ADMIT Nurse Practitioner; ATTEND Internal Medicine
PROC: 5A1955Z Respiratory Ventilation, Greater than 96 Consecutive Hours (ICD-10-PCS; principal; 2017-04-01)
PROC: 0BH17EZ Insertion of Endotracheal Airway into Trachea, Via Natural or Artificial Opening (ICD-10-PCS; 2017-04-01)
PROC: 06HN33Z Insertion of Infusion Device into Left Femoral Vein, Percutaneous Approach (ICD-10-PCS; 2017-04-01)
PROC: 06HD33Z Insertion of Infusion Device into Left Common Iliac Vein, Percutaneous Approach (ICD-10-PCS; 2017-04-01)
PROC: 02HV33Z Insertion of Infusion Device into Superior Vena Cava, Percutaneous Approach (ICD-10-PCS; 2017-04-01)
PROC: 5A09357 Assistance with Respiratory Ventilation, Less than 24 Consecutive Hours, Continuous Positive Airway Pressure (ICD-10-PCS; 2017-04-01)
DX: A41.9 Sepsis, unspecified organism (principal); I21.4 Non-ST elevation (NSTEMI) myocardial infarction; B37.1 Pulmonary candidiasis; J96.01 Acute respiratory failure with hypoxia; R65.21 Severe sepsis with septic shock; J18.9 Pneumonia, unspecified organism; E43 Unspecified severe protein-calorie malnutrition; G92 Toxic encephalopathy; N17.9 Acute kidney failure, unspecified; I11.0 Hypertensive heart disease with heart failure; I50.9 Heart failure, unspecified; A04.7 Enterocolitis due to Clostridium difficile; J44.1 Chronic obstructive pulmonary disease with (acute) exacerbation; N39.0 Urinary tract infection, site not specified; F20.9 Schizophrenia, unspecified; Z59.0 Homelessness; F17.210 Nicotine dependence, cigarettes, uncomplicated; F12.90 Cannabis use, unspecified, uncomplicated; D64.9 Anemia, unspecified; L89.90 Pressure ulcer of unspecified site, unspecified stage; E87.5 Hyperkalemia; E87.6 Hypokalemia; F11.20 Opioid dependence, uncomplicated; F31.9 Bipolar disorder, unspecified; G40.909 Epilepsy, unspecified, not intractable, without status epilepticus; F10.10 Alcohol abuse, uncomplicated; F41.9 Anxiety disorder, unspecified; J44.0 Chronic obstructive pulmonary disease with (acute) lower respiratory infection; Z53.29 Procedure and treatment not carried out because of patient's decision for other reasons; Z68.21 Body mass index [BMI] 21.0-21.9, adult; Z81.8 Family history of other mental and behavioral disorders; Z82.49 Family history of ischemic heart disease and other diseases of the circulatory system; Z83.3 Family history of diabetes mellitus; Z90.89 Acquired absence of other organs; Z71.89 Other specified counseling
CPT/HCPCS: 31500; 36415; 36556; 36569; 36600; 51702; 70450; 70551; 71010; 71275; 72170; 74176; 80048; 80053; 80185; 80202; 80307; 80320; 81001; 82270; 82805; 82962; 83605; 83735; 83880; 84132; 84443; 84484; 85007; 85025; 85027; 85379; 85610; 85730; 87040; 87070; 87081; 87086; 87205; 87493; 93005; 93306; 94002; 94003; 94640; 94660; 95819; 96365; 96375; 97163; A4565; C9113; J0330; J0696; J1450; J2001; J2248; J2405; J2543; J2704; J3010; J3480; J3490; J7060

== ENCOUNTER 2017-05-09 10:56 | Inpatient (IN) | payer MEDICAID ==
[~2017-05-09] VITALS: Ht 154.9 cm; Wt 69.0 kg
[2017-05-09] MEDS ORDERED: ALBUTEROL SULF 2.5 MG/0.5ML(0.5%) NEB SOLN HHN ONE (11:45)
[2017-05-09] MEDS ORDERED: methylPREDNISolone SOD SUCC 125 MG/2 ML VL IV ONE (11:45)
[2017-05-09] MEDS ORDERED: IPRATROPIUM BROM 0.5 MG/2.5ML INH SOL HHN ONE (11:45)
[2017-05-09 12:16] LABS: Basophils # (auto) 0.1 uL; Basophils % (auto) 0.4 % (0.0-2.0); CONDITION AutoValidated; DEFINITIVE SEE PRINTOUT; Eosinophils # (auto) 0.1 uL; Eosinophils % (auto) 0.5 % (0.0-7.0); Hematocrit 25.5 % (36.0-46.0); Hemoglobin 7.9 g/dL (12.2-16.2); Lymphocytes # (auto) 2.8 uL; Lymphocytes % (auto) 17.2 % (10.0-50.0); Mean Corpuscular Hemoglobin 20.8 pg (28.0-32.0); Mean Corpuscular Hgb Conc. 30.8 g/dL (32.0-36.0); Mean Corpuscular Volume 67.3 fL (80.0-100.0); Mean Platelet Volume 6.9 fL (7.4-10.4); Monocytes # (auto) 1.5 uL; Monocytes % (auto) 9.5 % (0.0-12.0); Neutrophils # (auto) 11.8 uL; Neutrophils % (auto) 72.4 % (37.0-80.0); Platelet Count (auto) 581 10^3/uL (140-450); SUSPECT SEE PRINTOUT; White Blood Cell 16.3 10^3/uL (4.4-10.8)
[2017-05-09 12:17] LABS: Red Cell Distribution Width 25.3 % (11.6-16.0)
[2017-05-09 12:29] LABS: Anisocytosis Slight; Hypochromia Moderate; Microcytosis Moderate; Ovalocytes FEW; Platelet Estimate Increased
[2017-05-09 12:35] LABS: Albumin 2.9 g/dL (3.4-5.0); BUN/Creatinine Ratio 13.8; Bilirubin, Total 0.3 mg/dL (0.2-1.0); Calcium 8.5 mg/dL (8.5-10.1); Magnesium 1.8 mg/dL (1.6-2.6); Total Protein 7.2 g/dL (6.4-8.2)
[2017-05-09 13:02] LABS: B-Type Natriuretic Peptide 739.34 pg/mL (0-100); Temperature: 23.7 C (20.0-25.0)
[2017-05-09] MEDS ORDERED: ACETAMINOPHEN 500 MG TAB PO PRN (13:45)
[2017-05-09] MEDS ORDERED: LACTULOSE 20Gm/30ML SOLN PO PRN (13:45)
[2017-05-09] MEDS ORDERED: PROMETHAZINE HCL 25 MG/ML 1ML IV PRN (13:45)
[2017-05-09] MEDS ORDERED: MORPHINE SULF INJ 2 MG/ML SYRINGE 1ML IV PRN ×2 (13:45)
[2017-05-09] MEDS ORDERED: HYDROcodone-ACET 5/325MG TAB PO PRN (13:45)
[2017-05-09] MEDS ORDERED: NITROGLYCERIN 0.4 MG SL TAB SL PRN (13:45)
[2017-05-09] MEDS ORDERED: LORazepam 0.5 MG TAB PO PRN (13:45)
[2017-05-09] MEDS ORDERED: ALBUTEROL SULF 2.5 MG/0.5ML(0.5%) NEB SOLN NEB PRN (13:45)
[2017-05-09] MEDS ORDERED: ALPRAZolam 0.5 MG TAB PO PRN (13:45)
[2017-05-09] MEDS ORDERED: TEMAZEPAM 15 MG CAP PO PRN (13:45)
[2017-05-09] MEDS: LEVOFLOXACIN 500MG 100 ML IV SCH (14:40)
[2017-05-09] MEDS: SODIUM CHLOR 0.9% PF (SALINE LOCK) 10ML VIAL IV SCH ×2 (14:40→22:00)
[2017-05-09] MEDS: ENOXAPARIN SOD 40 MG/0.4 ML SYRINGE SC SCH ×2 (14:40→14:47)
[2017-05-09 17:02] VITALS: BP 102/61
[2017-05-09 17:39] LABS: INR 1.07 (0.9-1.15); Prothrombin Time 11.7 sec (9.37-12.3)
[2017-05-09] MEDS: methylPREDNISolone SOD SUCC 40 MG/ML VL IV SCH (18:10)
[2017-05-09] MEDS ORDERED: WARFARIN SODIUM 5 MG TAB PO ONE (18:45)
[2017-05-09] MEDS: IPRATROPIUM BROM 0.5 MG/2.5ML INH SOL NEB SCH (18:57)
[2017-05-09] MEDS: ALBUTEROL SULF 2.5 MG/0.5ML(0.5%) NEB SOLN NEB SCH (18:57)
[2017-05-09 22:00] VITALS: BP 138/60
[2017-05-09] MEDS ORDERED: QUETIAPINE FUMERATE 200 MG PO SCH (22:00)
[2017-05-09] MEDS: ENOXAPARIN SOD 60 MG/0.6 ML SYRINGE SC SCH (22:42)
[2017-05-09] MEDS: QUEtiapine FUMARATE 100 MG TAB PO SCH (22:43)
[2017-05-10] MEDS: ALBUTEROL SULF 2.5 MG/0.5ML(0.5%) NEB SOLN NEB SCH ×5 (00:48→23:48)
[2017-05-10] MEDS: IPRATROPIUM BROM 0.5 MG/2.5ML INH SOL NEB SCH ×5 (00:49→23:48)
[2017-05-10] MEDS: methylPREDNISolone SOD SUCC 40 MG/ML VL IV SCH ×4 (00:50→17:59)
[2017-05-10 03:52] VITALS: BP 138/60
[2017-05-10 04:48] VITALS: BP 139/57
[2017-05-10] MEDS: SODIUM CHLOR 0.9% PF (SALINE LOCK) 10ML VIAL IV SCH ×3 (06:00→22:00)
[2017-05-10 07:10] LABS: Basophils # (auto) 0 uL; Basophils % (auto) 0.2 % (0.0-2.0); CONDITION AutoValidated; DEFINITIVE SEE PRINTOUT; Eosinophils # (auto) 0 uL; Eosinophils % (auto) 0.1 % (0.0-7.0); Hematocrit 25.4 % (36.0-46.0); Hemoglobin 7.7 g/dL (12.2-16.2); Lymphocytes # (auto) 1.1 uL; Lymphocytes % (auto) 11.2 % (10.0-50.0); Mean Corpuscular Hemoglobin 20.6 pg (28.0-32.0); Mean Corpuscular Hgb Conc. 30.5 g/dL (32.0-36.0); Mean Corpuscular Volume 67.7 fL (80.0-100.0); Mean Platelet Volume 7.1 fL (7.4-10.4); Monocytes # (auto) 0.3 uL; Monocytes % (auto) 3.3 % (0.0-12.0); Neutrophils # (auto) 8.2 uL; Neutrophils % (auto) 85.2 % (37.0-80.0); Platelet Count (auto) 527 10^3/uL (140-450); SUSPECT SEE PRINTOUT; White Blood Cell 9.6 10^3/uL (4.4-10.8)
[2017-05-10 07:15] LABS: INR 1.08 (0.9-1.15); Partial Thromboplastin Time 25.6 sec (22.64-33.71); Prothrombin Time 11.8 sec (9.37-12.3)
[2017-05-10 07:25] LABS: Red Cell Distribution Width 25.7 % (11.6-16.0)
[2017-05-10 07:39] LABS: Albumin 2.7 g/dL (3.4-5.0); Anion Gap 10 (5-15); Blood Urea Nitrogen 24 mg/dL (7-18); Calcium 8.4 mg/dL (8.5-10.1); Carbon Dioxide 26 mmol/L (21-32); Chloride 102 mmol/L (98-107); Glucose 137 mg/dL (74-106); Potassium 4.9 mmol/L (3.5-5.1); Sodium 138 mmol/L (136-145)
[2017-05-10 07:41] LABS: BUN/Creatinine Ratio 18.6; GFR African American 54 mL/min; GFR Non-African American 45 mL/min
[2017-05-10 07:45] LABS: B-Type Natriuretic Peptide 319.56 pg/mL (0-100)
[2017-05-10 07:47] LABS: Alkaline Phosphatase 88 U/L (45-117); Aspartate Aminotransferase 17 U/L (15-37); Bilirubin, Total < 0.1 mg/dL (0.2-1.0); Total Protein 7.2 g/dL (6.4-8.2)
[2017-05-10 08:06] LABS: Anisocytosis Moderate; Hypochromia Moderate; Microcytosis Moderate; Ovalocytes FEW; Platelet Estimate Increased
[2017-05-10 09:02] VITALS: BP 110/63
[2017-05-10] MEDS: LEVOFLOXACIN 500MG 100 ML IV SCH (09:35)
[2017-05-10] MEDS: QUEtiapine FUMARATE 100 MG TAB PO SCH ×2 (09:36→22:43)
[2017-05-10] MEDS: ENOXAPARIN SOD 60 MG/0.6 ML SYRINGE SC SCH (09:36)
[2017-05-10] MEDS: busPIRone HCL 10 MG TAB PO SCH (09:36)
[2017-05-10] MEDS: PHENYTOIN SODIUM 100 MG CAP PO SCH (09:36)
[2017-05-10] MEDS: METHADONE HCL 10 MG TAB PO SCH (09:36)
[2017-05-10] MEDS: [UNRECOGNIZED DRUG - REMARK] PO SCH (09:38)
[2017-05-10] MEDS ORDERED: POTASSIUM CHL 20 Meq TABLET PO ONE (10:00)
[2017-05-10] MEDS ORDERED: FUROSEMIDE 20 MG/2 ML VIAL IV ONE (10:00)
[2017-05-10] MEDS: NICOTINE 21MG/24 HR TOPICAL PATCH TD SCH (10:08)
[2017-05-10 13:00] VITALS: BP 102/65
[2017-05-10 17:00] VITALS: BP 99/62
[2017-05-10] MEDS ORDERED: WARFARIN SODIUM 2.5 MG TAB PO ONE (17:00)
[2017-05-10] MEDS: RIVAROXABAN 15 MG TAB PO SCH (17:59)
[2017-05-10 22:00] VITALS: BP 99/67
[2017-05-11] MEDS: methylPREDNISolone SOD SUCC 40 MG/ML VL IV SCH ×4 (00:19→17:55)
[2017-05-11] MEDS: SODIUM CHLOR 0.9% PF (SALINE LOCK) 10ML VIAL IV SCH ×3 (06:00→22:00)
[2017-05-11] MEDS: ALBUTEROL SULF 2.5 MG/0.5ML(0.5%) NEB SOLN NEB SCH ×3 (06:13→18:00)
[2017-05-11] MEDS: IPRATROPIUM BROM 0.5 MG/2.5ML INH SOL NEB SCH ×3 (06:13→18:00)
[2017-05-11] MEDS: RIVAROXABAN 15 MG TAB PO SCH ×2 (08:14→18:12)
[2017-05-11 09:38] VITALS: BP 116/74
[2017-05-11] MEDS: [UNRECOGNIZED DRUG - REMARK] PO SCH (10:00)
[2017-05-11] MEDS: LEVOFLOXACIN 500MG 100 ML IV SCH (10:34)
[2017-05-11] MEDS: busPIRone HCL 10 MG TAB PO SCH (10:35)
[2017-05-11] MEDS: PHENYTOIN SODIUM 100 MG CAP PO SCH (10:35)
[2017-05-11] MEDS: QUEtiapine FUMARATE 100 MG TAB PO SCH ×2 (10:36→23:34)
[2017-05-11] MEDS: METHADONE HCL 10 MG TAB PO SCH (10:36)
[2017-05-11] MEDS: NICOTINE 21MG/24 HR TOPICAL PATCH TD SCH (10:37)
[2017-05-11 13:03] VITALS: BP 117/53
[2017-05-11 14:19] LABS: Basophils # (auto) 0 uL; CONDITION AutoValidated; DEFINITIVE SEE PRINTOUT; Eosinophils # (auto) 0 uL; Hematocrit 25.3 % (36.0-46.0); Hemoglobin 7.7 g/dL (12.2-16.2); Lymphocytes # (auto) 0.5 uL; Lymphocytes % (auto) 4.4 % (10.0-50.0); Mean Corpuscular Hemoglobin 20.5 pg (28.0-32.0); Mean Corpuscular Hgb Conc. 30.5 g/dL (32.0-36.0); Mean Corpuscular Volume 67.3 fL (80.0-100.0); Mean Platelet Volume 7.3 fL (7.4-10.4); Monocytes # (auto) 0.4 uL; Neutrophils # (auto) 10.2 uL; Neutrophils % (auto) 91.6 % (37.0-80.0); Platelet Count (auto) 527 10^3/uL (140-450); SUSPECT SEE PRINTOUT; White Blood Cell 11.2 10^3/uL (4.4-10.8)
[2017-05-11 14:36] LABS: Red Cell Distribution Width 25.6 % (11.6-16.0)
[2017-05-11 14:39] LABS: INR 1.28 (0.9-1.15); Partial Thromboplastin Time 26.1 sec (22.64-33.71)
[2017-05-11 14:41] LABS: Albumin 2.9 g/dL (3.4-5.0); BUN/Creatinine Ratio 31.5; Bilirubin, Total 0.2 mg/dL (0.2-1.0); Calcium 8.6 mg/dL (8.5-10.1); Potassium 4.4 mmol/L (3.5-5.1); Total Protein 7.1 g/dL (6.4-8.2)
[2017-05-11 15:15] LABS: Microcytosis Marked; Platelet Estimate Increased
[2017-05-11 15:16] LABS: Hypochromia Marked; Ovalocytes FEW; Stomatocytes Few
[2017-05-11 17:15] VITALS: BP 102/50
[2017-05-11 22:03] VITALS: BP 111/76
[2017-05-12] VITALS (7 sets, daily range): BP systolic 110–135; BP diastolic 67–84
[2017-05-12] MEDS: methylPREDNISolone SOD SUCC 40 MG/ML VL IV SCH ×5 (00:26→23:58)
[2017-05-12] MEDS: SODIUM CHLOR 0.9% PF (SALINE LOCK) 10ML VIAL IV SCH ×3 (06:00→21:43)
[2017-05-12 06:45] LABS: CONDITION AutoValidated; DEFINITIVE SEE PRINTOUT; Hematocrit 24.9 % (36.0-46.0); Hemoglobin 7.8 g/dL (12.2-16.2); Mean Corpuscular Hemoglobin 20.7 pg (28.0-32.0); Mean Corpuscular Hgb Conc. 31.4 g/dL (32.0-36.0); Mean Corpuscular Volume 65.9 fL (80.0-100.0); Mean Platelet Volume 8.2 fL (7.4-10.4); Platelet Count (auto) 457 10^3/uL (140-450); SUSPECT SEE PRINTOUT; White Blood Cell 11.2 10^3/uL (4.4-10.8)
[2017-05-12 06:49] LABS: Red Cell Distribution Width 25.4 % (11.6-16.0)
[2017-05-12 06:50] LABS: Metamyelocytes % 0; Myelocytes % 0; Promyelocytes % 0; Reactive Lymphocytes 0
[2017-05-12] MEDS: ALBUTEROL SULF 2.5 MG/0.5ML(0.5%) NEB SOLN NEB SCH ×4 (07:02→19:15)
[2017-05-12] MEDS: IPRATROPIUM BROM 0.5 MG/2.5ML INH SOL NEB SCH ×4 (07:02→19:15)
[2017-05-12 07:17] LABS: Albumin 2.6 g/dL (3.4-5.0); BUN/Creatinine Ratio 40.2; Bilirubin, Total 0.2 mg/dL (0.2-1.0); Calcium 8.5 mg/dL (8.5-10.1); Potassium 4.7 mmol/L (3.5-5.1); Total Protein 6.3 g/dL (6.4-8.2)
[2017-05-12 07:34] LABS: Anisocytosis Moderate; Hypochromia Moderate; Microcytosis Moderate; Ovalocytes FEW; Platelet Estimate Increased
[2017-05-12] MEDS: RIVAROXABAN 15 MG TAB PO SCH ×2 (08:32→17:38)
[2017-05-12] MEDS: LEVOFLOXACIN 500MG 100 ML IV SCH (09:58)
[2017-05-12] MEDS: METHADONE HCL 10 MG TAB PO SCH (09:59)
[2017-05-12] MEDS: QUEtiapine FUMARATE 100 MG TAB PO SCH ×2 (09:59→21:44)
[2017-05-12] MEDS: [UNRECOGNIZED DRUG - REMARK] PO SCH (09:59)
[2017-05-12] MEDS: busPIRone HCL 10 MG TAB PO SCH (10:00)
[2017-05-12] MEDS: PHENYTOIN SODIUM 100 MG CAP PO SCH (10:00)
[2017-05-12] MEDS: NICOTINE 21MG/24 HR TOPICAL PATCH TD SCH (10:01)
[2017-05-12 11:02] LABS: Base Excess 1.9 mmol/L (-2.0-2.0); Blood 02Sat 85.7 % (96-100); Blood MetHb 0.4 % (0.0-1.5); HCO3 26.8 mmol/L (22-26.0); HHb 14.1 % (0.0-5.0); MODE ROOM AIR; O2Hb 84.5 % (94.0-97.0); PCO2 43.8 mmHg (35.0-45.0); PCO2(T) 43.8 mmHg (35.0-45.0); Room 0279T; Sample Type Arterial; pH 7.405 (7.350-7.450)
[2017-05-12] MEDS: FERROUS SULFATE 325 MG TAB PO SCH (21:44)
[2017-05-13] MEDS: IPRATROPIUM BROM 0.5 MG/2.5ML INH SOL NEB SCH ×4 (01:04→18:00)
[2017-05-13] MEDS: ALBUTEROL SULF 2.5 MG/0.5ML(0.5%) NEB SOLN NEB SCH ×4 (01:04→18:00)
[2017-05-13 05:00] VITALS: BP 126/85
[2017-05-13] MEDS: methylPREDNISolone SOD SUCC 40 MG/ML VL IV SCH ×3 (05:48→18:00)
[2017-05-13] MEDS: SODIUM CHLOR 0.9% PF (SALINE LOCK) 10ML VIAL IV SCH ×2 (05:48→14:00)
[2017-05-13] MEDS: FERROUS SULFATE 325 MG TAB PO SCH ×2 (06:00→18:23)
[2017-05-13 08:00] VITALS: BP 142/85
[2017-05-13 08:08] LABS: Basophils # (auto) 0.1 uL; CONDITION Y; DEFINITIVE SEE PRINTOUT; Eosinophils # (auto) 0 uL; Eosinophils % (auto) 0.1 % (0.0-7.0); SUSPECT SEE PRINTOUT
[2017-05-13 08:18] LABS: Hematocrit 28.6 % (36.0-46.0); Lymphocytes % (auto) 11.4 % (10.0-50.0); Mean Corpuscular Hemoglobin 20.5 pg (28.0-32.0); Mean Corpuscular Hgb Conc. 31.4 g/dL (32.0-36.0); Mean Corpuscular Volume 65.4 fL (80.0-100.0); Mean Platelet Volume 7.4 fL (7.4-10.4); Monocytes # (auto) 0.5 uL; Monocytes % (auto) 5.7 % (0.0-12.0); Neutrophils # (auto) 7.3 uL; Neutrophils % (auto) 81.8 % (37.0-80.0); Platelet Count (auto) 473 10^3/uL (140-450)
[2017-05-13 08:20] LABS: Red Cell Distribution Width 25.1 % (11.6-16.0)
[2017-05-13 08:31] LABS: Albumin 2.9 g/dL (3.4-5.0); BUN/Creatinine Ratio 34.9; Bilirubin, Total 0.2 mg/dL (0.2-1.0); Calcium 8.6 mg/dL (8.5-10.1); Potassium 4.8 mmol/L (3.5-5.1); Total Protein 6.6 g/dL (6.4-8.2)
[2017-05-13 09:11] LABS: Anisocytosis Moderate; Platelet Estimate Increased
[2017-05-13 09:12] LABS: Hypochromia Moderate; Microcytosis Moderate; Ovalocytes FEW
[2017-05-13] MEDS: [UNRECOGNIZED DRUG - REMARK] PO SCH (10:00)
[2017-05-13] MEDS: LEVOFLOXACIN 500MG 100 ML IV SCH (10:44)
[2017-05-13] MEDS: RIVAROXABAN 15 MG TAB PO SCH ×2 (10:45→18:00)
[2017-05-13] MEDS: METHADONE HCL 10 MG TAB PO SCH (10:51)
[2017-05-13] MEDS: busPIRone HCL 10 MG TAB PO SCH (10:51)
[2017-05-13] MEDS: QUEtiapine FUMARATE 100 MG TAB PO SCH (10:52)
[2017-05-13] MEDS: PHENYTOIN SODIUM 100 MG CAP PO SCH (10:52)
[2017-05-13] MEDS: NICOTINE 21MG/24 HR TOPICAL PATCH TD SCH (10:55)
[2017-05-13 11:19] LABS: Allen Test Yes; Base Excess 1.1 mmol/L (-2.0-2.0); Blood 02Sat 88.2 % (96-100); Blood COHb 0.1 % (0.5-1.5); Blood MetHb 0.4 % (0.0-1.5); HCO3 25.4 mmol/L (22-26.0); HHb 11.7 % (0.0-5.0); MODE ROOM AIR; O2Hb 87.8 % (94.0-97.0); PCO2 39.2 mmHg (35.0-45.0); PCO2(T) 39.2 mmHg (35.0-45.0); PO2 58.3 mmHg (80.0-100.0); PO2(T) 58.3 mmHg (80.0-100.0); Room 0279T; Sample Type Arterial
[2017-05-13 11:46] VITALS: BP 110/63
[2017-05-13 12:00] VITALS: BP 130/80
[2017-05-13] MEDS ORDERED: NALOXONE HCL 0.4 MG/ML VIAL ONE (13:40)
[2017-05-13] MEDS ORDERED: FLUMAZENIL 0.1 MG/ML INJ 10ML MDV IV ONE (13:40)
[2017-05-13] MEDS ORDERED: LIDOCAINE VISCOUS 2% 15ML UD ONE (13:41)
[2017-05-13] MEDS ORDERED: SODIUM CHLORIDE LOCK 10 ML ONE (13:41)
[2017-05-13] MEDS: fentaNYL CITRATE 100 MCG/2 ML VL ONE ×2 (15:32→15:38)
[2017-05-13] MEDS: MIDAZOLAM HCL 5 MG/ML-1ML VIAL ONE ×3 (15:32→15:40)
[2017-05-13] MEDS: diphenhdrAMINE HCL 50 MG/1 ML VL ONE ×2 (15:40→15:43)
[2017-05-13 17:00] VITALS: BP 138/92
== END 2017-05-13 18:00 | disposition home or self-care (01) | DRG 133 ==
LOC: ER 10:56 → TELE 10:57 → TELE-WESTW 16:43
PROVIDERS: ADMIT Internal Medicine; ATTEND Internal Medicine
PROC: 0DB88ZX Excision of Small Intestine, Via Natural or Artificial Opening Endoscopic, Diagnostic (ICD-10-PCS; 2017-05-13)
PROC: 0DB68ZX Excision of Stomach, Via Natural or Artificial Opening Endoscopic, Diagnostic (ICD-10-PCS; principal; 2017-05-13 15:28)
DX: J96.20 Acute and chronic respiratory failure, unspecified whether with hypoxia or hypercapnia (principal); I27.81 Cor pulmonale (chronic); J44.1 Chronic obstructive pulmonary disease with (acute) exacerbation; I82.403 Acute embolism and thrombosis of unspecified deep veins of lower extremity, bilateral; I50.9 Heart failure, unspecified; I11.0 Hypertensive heart disease with heart failure; E87.1 Hypo-osmolality and hyponatremia; J45.901 Unspecified asthma with (acute) exacerbation; K29.60 Other gastritis without bleeding; Z99.81 Dependence on supplemental oxygen; F32.9 Major depressive disorder, single episode, unspecified; F20.9 Schizophrenia, unspecified; F41.9 Anxiety disorder, unspecified; F17.210 Nicotine dependence, cigarettes, uncomplicated; I25.10 Atherosclerotic heart disease of native coronary artery without angina pectoris; Z59.0 Homelessness; Z80.1 Family history of malignant neoplasm of trachea, bronchus and lung; Z80.3 Family history of malignant neoplasm of breast; Z80.41 Family history of malignant neoplasm of ovary; Z80.8 Family history of malignant neoplasm of other organs or systems; Z81.8 Family history of other mental and behavioral disorders; Z82.0 Family history of epilepsy and other diseases of the nervous system; Z82.3 Family history of stroke; Z82.49 Family history of ischemic heart disease and other diseases of the circulatory system; Z82.5 Family history of asthma and other chronic lower respiratory diseases; Z83.3 Family history of diabetes mellitus; F15.90 Other stimulant use, unspecified, uncomplicated; Z80.9 Family history of malignant neoplasm, unspecified; Z84.1 Family history of disorders of kidney and ureter; Z83.49 Family history of other endocrine, nutritional and metabolic diseases; K21.9 Gastro-esophageal reflux disease without esophagitis; K44.9 Diaphragmatic hernia without obstruction or gangrene; Z91.19 Patient's noncompliance with other medical treatment and regimen; Z71.89 Other specified counseling; D50.9 Iron deficiency anemia, unspecified
CPT/HCPCS: 36415; 36600; 43239; 71010; 71020; 80053; 82378; 82550; 82805; 83735; 83880; 84443; 84484; 85007; 85025; 85027; 85379; 85610; 85652; 85730; 86141; 87081; 93005; 93970; 94640; 94644; 94761; 96374; J1956; J2250

== ENCOUNTER 2017-05-19 11:09 | Emergency (ER) | payer MEDICAID ==
[~2017-05-19] VITALS: Ht 154.9 cm; Wt 56.2 kg
[2017-05-19 11:22] VITALS: BP 158/77
[2017-05-19 13:06] LABS: Urine Bilirubin Negative (Negative); Urine Blood Negative /uL (Negative); Urine Color Yellow (Yellow); Urine Glucose Normal (Normal); Urine Ketone Negative (Negative); Urine Mucus FEW (None Seen); Urine Nitrite Negative (Negative); Urine RBC 1 /hpf (0 - 4); Urine Squamous Epithelial Cell FEW /hpf (<5); Urine Urobilinogen Normal (Negative)
[2017-05-19 15:24] LABS: Basophils # (auto) 0 uL; Basophils % (auto) 0.1 % (0.0-2.0); CONDITION Y; DEFINITIVE SEE PRINTOUT; Eosinophils # (auto) 0.1 uL; Eosinophils % (auto) 0.7 % (0.0-7.0); Lymphocytes # (auto) 2.8 uL; Lymphocytes % (auto) 25.7 % (10.0-50.0); Mean Corpuscular Hemoglobin 20.6 pg (28.0-32.0); Mean Corpuscular Hgb Conc. 30.9 g/dL (32.0-36.0); Mean Corpuscular Volume 66.6 fL (80.0-100.0); Mean Platelet Volume 7.5 fL (7.4-10.4); Monocytes # (auto) 0.7 uL; Monocytes % (auto) 6.8 % (0.0-12.0); Neutrophils # (auto) 7.2 uL; Neutrophils % (auto) 66.7 % (37.0-80.0); Platelet Count (auto) 414 10^3/uL (140-450); SUSPECT SEE PRINTOUT; White Blood Cell 10.8 10^3/uL (4.4-10.8)
[2017-05-19 15:25] LABS: Red Cell Distribution Width 26.9 % (11.6-16.0)
[2017-05-19 15:31] LABS: Albumin 3.1 g/dL (3.4-5.0); BUN/Creatinine Ratio 19.8; Calcium 7.8 mg/dL (8.5-10.1); Potassium 3.4 mmol/L (3.5-5.1)
[2017-05-19 15:34] LABS: Bilirubin, Total 0.2 mg/dL (0.2-1.0); Total Protein 6.6 g/dL (6.4-8.2)
[2017-05-19 18:01] LABS: Anisocytosis Moderate; Hypochromia Moderate; Platelet Estimate Adequate
[2017-05-19 18:02] LABS: Microcytosis Marked; Ovalocytes MODERATE
== END 2017-05-19 16:42 | disposition left against medical advice (07) ==
LOC: ER 11:22
DX: R10.13 Epigastric pain (principal); Z53.21 Procedure and treatment not carried out due to patient leaving prior to being seen by health care provider
CPT/HCPCS: 36415; 80053; 81001; 82150; 83690; 85025

== ENCOUNTER 2017-06-30 10:36 | Emergency (ER) | payer MEDICAID ==
[~2017-06-30] VITALS: Ht 157.5 cm; Wt 59.0 kg
[2017-06-30] MEDS ORDERED: SODIUM CHLORIDE 0.9% 1,000 ML IV ONE (10:43)
[2017-06-30 11:21] VITALS: BP 101/64
== END 2017-06-30 12:43 | disposition home or self-care (01) ==
LOC: EDBD 10:36 → ER 10:36
DX: R51 Headache (principal); F12.10 Cannabis abuse, uncomplicated; F15.10 Other stimulant abuse, uncomplicated; F11.10 Opioid abuse, uncomplicated; Z79.899 Other long term (current) drug therapy; J44.9 Chronic obstructive pulmonary disease, unspecified; I50.9 Heart failure, unspecified; I11.0 Hypertensive heart disease with heart failure; F17.210 Nicotine dependence, cigarettes, uncomplicated; Z59.0 Homelessness
CPT/HCPCS: 70450; 71010; 99284; J7030

== ENCOUNTER 2018-04-25 16:10 | Inpatient (IN) | payer MEDICAID, OTHER ==
[~2018-04-25] VITALS: Ht 154.9 cm; Wt 56.7 kg
[~2018-04-25 16:10] MED LIST changes: -HYDR-4663 PO; +HYDR-4683 PO
[2018-04-25] MEDS ORDERED: ASPirin 81 mg TAB PO ONE (16:30)
[2018-04-25 18:25] LABS: Alanine Aminotransferase 14 U/L (13-56); Albumin 3.6 g/dL (3.4-5.0); Alkaline Phosphatase 93 U/L (45-117); Anion Gap 8 (5-15); Aspartate Aminotransferase 12 U/L (15-37); BUN/Creatinine Ratio 13.6; Bilirubin, Total 0.5 mg/dL (0.2-1.0); Blood Urea Nitrogen 11 mg/dL (7-18); Calcium 8.6 mg/dL (8.5-10.1); Carbon Dioxide 29 mmol/L (21-32); Chloride 100 mmol/L (98-107); GFR African American 92 mL/min; GFR Non-African American 76 mL/min; Glucose 65 mg/dL (74-106); Magnesium 2.3 mg/dL (1.6-2.6); Potassium 3.5 mmol/L (3.5-5.1); Sodium 137 mmol/L (136-145); Total Protein 8.2 g/dL (6.4-8.2)
[2018-04-25 18:34] LABS: Basophils # (auto) 0 uL; Eosinophils # (auto) 0.1 uL; Mean Corpuscular Volume 58.3 fL (80.0-100.0); Nucleated Red Blood Cells % 0.1 %; White Blood Cell 7.1 10^3/uL (4.4-10.8)
[2018-04-25 18:36] LABS: Basophils % (auto) 0.5 % (0.0-2.0); Eosinophils % (auto) 1.8 % (0.0-7.0); Hematocrit 32.7 % (36.0-46.0); Hemoglobin 9.3 g/dL (12.2-16.2); Lymphocytes # (auto) 2.8 uL; Lymphocytes % (auto) 39.3 % (10.0-50.0); Mean Corpuscular Hemoglobin 16.5 pg (28.0-32.0); Mean Corpuscular Hgb Conc. 28.3 g/dL (32.0-36.0); Monocytes # (auto) 0.8 uL; Monocytes % (auto) 10.7 % (0.0-12.0); Neutrophils # (auto) 3.4 uL; Neutrophils % (auto) 47.7 % (37.0-80.0); Platelet Count (auto) 282 10^3/uL (140-450); Red Blood Cells 5.61 10^6/uL (4.0-5.20)
[2018-04-25 18:44] LABS: Red Cell Distribution Width 23.1 % (11.8-14.3)
[2018-04-25] MEDS ORDERED: AZITHROMYCIN 500MG/ 250ML 250 ML IV ONE (18:45)
[2018-04-25] MEDS ORDERED: cefTRIAXone 1GM/10ml IVPUSH 10 ML IV ONE (18:45)
[2018-04-26] MEDS ORDERED: HYDROcodone-ACET 5/325MG TAB PO PRN (01:45)
[2018-04-26] MEDS ORDERED: ALBUTEROL SULF 2.5 MG/0.5ML(0.5%) NEB SOLN NEB PRN (01:45)
[2018-04-26] MEDS ORDERED: MORPHINE SULFATE 8mg/ml INJ SDV IV PRN (01:45)
[2018-04-26] MEDS ORDERED: ONDANSETRON HCL 4 MG/2 ML VIAL IV PRN (01:45)
[2018-04-26] MEDS ORDERED: ACETAMINOPHEN 500 MG TAB PO PRN (01:45)
[2018-04-26] MEDS ORDERED: NITROGLYCERIN 0.4 MG SL TAB SL PRN (01:45)
[2018-04-26 02:33] VITALS: BP 108/72
[2018-04-26] MEDS ORDERED: PHENYTOIN SODIUM 100 MG CAP PO SCH (10:00)
[2018-04-26] MEDS ORDERED: busPIRone HCL 10 MG TAB PO SCH (10:00)
[2018-04-26] MEDS ORDERED: QUEtiapine FUMARATE 100 MG TAB PO SCH (22:00)
== END 2018-04-26 02:35 | disposition left against medical advice (07) | DRG 133 ==
LOC: ER 16:10 → TELE 16:11
PROVIDERS: ADMIT Nurse Practitioner Family; ATTEND Nurse Practitioner Family
DX: J96.20 Acute and chronic respiratory failure, unspecified whether with hypoxia or hypercapnia (principal); J18.9 Pneumonia, unspecified organism; I11.0 Hypertensive heart disease with heart failure; J44.0 Chronic obstructive pulmonary disease with (acute) lower respiratory infection; I50.9 Heart failure, unspecified; F20.9 Schizophrenia, unspecified; F41.9 Anxiety disorder, unspecified; F32.9 Major depressive disorder, single episode, unspecified; F17.210 Nicotine dependence, cigarettes, uncomplicated; Z53.21 Procedure and treatment not carried out due to patient leaving prior to being seen by health care provider; Z59.0 Homelessness; Z83.3 Family history of diabetes mellitus
CPT/HCPCS: 36415; 71046; 80053; 83605; 83735; 84484; 85025; 87040; 93005

== ENCOUNTER 2019-10-23 11:05 | Inpatient (IN) | payer MEDICAID, OTHER ==
[~2019-10-23] VITALS: Ht 162.6 cm; Wt 54.7 kg
[2019-10-23] VITALS (8 sets, daily range): BP systolic 49–135; BP diastolic 24–79
[~2019-10-23 11:05] MED LIST changes: -HYDR-4683 PO; +HYDR-4833 PO
[2019-10-23] MEDS: NOREPINEPHRINE 8 MG/250ML KIT 250 ML IV SCH (11:11)
[2019-10-23] MEDS ORDERED: NOREPINEPHRINE 8 MG/250ML KIT 250 ML IV ONE (11:13)
[2019-10-23] MEDS ORDERED: PHENYLEPHRINE INJ 20 MG in D5W 5% 248 ML IV ONE (11:45)
[2019-10-23 12:21] LABS: Platelet Count (auto) 318 10^3/uL (140-450)
[2019-10-23 12:23] LABS: Hematocrit 36.1 % (36.0-46.0); Mean Corpuscular Hemoglobin 21.2 pg (28.0-32.0); Mean Corpuscular Hgb Conc. 30.3 g/dL (32.0-36.0); Red Blood Cells 5.16 10^6/uL (4.0-5.20); White Blood Cell 13.9 10^3/uL (4.4-10.8)
[2019-10-23 12:24] LABS: Red Cell Distribution Width 23.6 % (11.8-14.3)
[2019-10-23 12:25] LABS: Basophils % (manual) 0 (0.0-2.0); Blast Cells 0; Promyelocytes % 0; Reactive Lymphocytes 0
[2019-10-23 12:28] LABS: Albumin 2.3 g/dL (3.4-5.0); Calcium 7.6 mg/dL (8.5-10.1); Potassium 3.4 mmol/L (3.5-5.1)
[2019-10-23] MEDS ORDERED: CLINDAMYCIN 600MG IV 50 ML IV ONE (12:30)
[2019-10-23] MEDS ORDERED: cefTRIAXone 1GM/50ML D5W 50 ML IV ONE (12:30)
[2019-10-23 12:34] LABS: BUN/Creatinine Ratio 15.7; Bilirubin, Total 0.3 mg/dL (0.2-1.0); Total Protein 5.4 g/dL (6.4-8.2)
[2019-10-23 12:42] LABS: Band Neutrophils % (manual) 11; Eosinophils % (manual) 1 (0-7); Lymphocytes % (manual) 10 (10.0-50.0); Metamyelocytes % 2; Monocytes % (manual) 10 (0-12); Myelocytes % 1
[2019-10-23 15:02] LABS: Lactic Acid w/Reflex 15.6 mmol/L (0.4-2.0)
[2019-10-23] MEDS ORDERED: MORPHINE SULF INJ 2 MG/ML SYRINGE 1ML IV PRN (16:00)
[2019-10-23] MEDS ORDERED: POTASSIUM CHL 20MEQ/100ML 100 ML IV ONE (16:00)
[2019-10-23] MEDS ORDERED: MIDAZOLAM HCL 1MG/1ML-2 ML VIAL IV ONE (16:00)
[2019-10-23] MEDS ORDERED: DEXTROSE (50%) 50ML SYRG IV PRN (16:00)
[2019-10-23] MEDS ORDERED: NITROGLYCERIN 0.4 MG SL TAB SL PRN (16:00)
[2019-10-23 16:12] LABS: Alcohol, Urine < 3.0 mg/dL (0-5); Cannabinoid Screen, Urine NEGATIVE (NEGATIVE)
[2019-10-23] MEDS: MIDAZOLAM DRIP 50 mg/50mL 50 ML IV SCH (16:15)
[2019-10-23] MEDS: SODIUM CHLORIDE 0.9% 1,000 ML IV SCH (16:21)
[2019-10-23 16:22] LABS: Amphetamine Screen, Urine NEGATIVE (NEGATIVE); Barbiturate Scree,Urine NEGATIVE (NEGATIVE); Benzodiazephine Screen, Urine NEGATIVE (NEGATIVE); Cocaine Screen, Urine NEGATIVE (NEGATIVE); Opiate Scree,Urine POSITIVE (NEGATIVE); Phencyclidine Screen, Urine NEGATIVE (NEGATIVE)
[2019-10-23 16:30] LABS: Urine Bacteria FEW /hpf (None Seen); Urine Blood 2+ /uL (Negative); Urine Hyaline Cast FEW /lpf (0 - 2); Urine Mucus FEW (None Seen); Urine Specific Gravity 1.011 (1.001-1.035)
[2019-10-23] MEDS: LEVOFLOXACIN 500MG 100 ML IV SCH (17:03)
[2019-10-23 17:08] LABS: Albumin 2.7 g/dL (3.4-5.0); Calcium 7.4 mg/dL (8.5-10.1); Magnesium 1.6 mg/dL (1.6-2.6)
[2019-10-23 17:14] LABS: Bilirubin, Direct 0.3 mg/dL (0-0.2); Bilirubin, Total 0.4 mg/dL (0.2-1.0); Total Protein 6.5 g/dL (6.4-8.2)
[2019-10-23 17:27] LABS: Urine WBC 17 /hpf (0 - 5)
[2019-10-23] MEDS: ACCU-CHEK COMFORT CURVE STRIP VI SCH (18:00)
[2019-10-23] MEDS: ARTIFICIAL TEAR OPTH(EYE) OINT 3.5GM EACHEYE SCH ×2 (18:00→22:00)
[2019-10-23] MEDS: InsuLIN REG 1unit/0.01ml Soln (100units/ml) SC SCH (18:00)
[2019-10-23 19:04] LABS: Lactic Acid w/Reflex 8.5 mmol/L (0.4-2.0)
[2019-10-23] MEDS: CLINDAMYCIN 300MG IV 50 ML IV SCH (22:02)
[2019-10-23] MEDS: FAMOTIDINE (10MG/ML) 2ML VL IV SCH (22:02)
[2019-10-24] VITALS (10 sets, daily range): BP systolic 87–113; BP diastolic 61–72
[2019-10-24] MEDS: ACCU-CHEK COMFORT CURVE STRIP VI SCH ×4 (00:47→18:10)
[2019-10-24] MEDS: ARTIFICIAL TEAR OPTH(EYE) OINT 3.5GM EACHEYE SCH ×6 (02:00→21:31)
[2019-10-24] MEDS: SODIUM CHLORIDE 0.9% 1,000 ML IV SCH ×3 (02:21→22:36)
[2019-10-24] MEDS: InsuLIN REG 1unit/0.01ml Soln (100units/ml) SC SCH ×4 (06:00→18:00)
[2019-10-24] MEDS: CLINDAMYCIN 300MG IV 50 ML IV SCH ×2 (06:19→14:14)
--- NOTE | 2019-10-24 09:30 | NUR ---
WOUND CARE NOTE: ADDED PATIENT TO SKIN INTEGRITY MONITORING D/T PATIENT'S LOW ANTOINETTE SCORE OF 10, INTUBATION STATUS. PATIENT ADMITTED TO [facility] WITH DIAGNOSIS OF S/P CARDIOPULMONARY ARREST. PATIENT IS ICU STATUS IN THE ER. PATIENT IN ER BED 6, AWAITING PLACEMENT IN ICU WITH BED AVAILABLE. PATIENT RESTING ON HOSPITAL BED. SHE IS INTUBATED, SEDATED, WOUND FREE AT THIS TIME. RECOMMEND: FREQUENT TURN SCHEDULE Q 2 HOURS, PRN CONDITION PERMITS, WITH PRESSURE REDISTRIBUTION USING PILLOWS/WEDGES, BID/PRN APPLICATION WITH MOISTURE BARRIER CREAM, OPTIFOAM GENTLE SACRAL DRESSING PREVENTATIVE, JARVIS FOAM BOOTS TO BILATERAL FEET/HEELS PREVENTATIVE, SKIN/WOUND CARE PLAN, DIETARY CONSULT, CONTINUED MONITORING BY WOUND CARE TEAM.
[2019-10-24] MEDS ORDERED: LEVETIRACETAM INJ 1,000 MG in D5W 5% 100 ML IV SCH (10:00)
[2019-10-24] MEDS: LEVOFLOXACIN 500MG 100 ML IV SCH (10:11)
[2019-10-24] MEDS: FAMOTIDINE (10MG/ML) 2ML VL IV SCH (10:24)
[2019-10-24] MEDS: NOREPINEPHRINE 8 MG/250ML KIT 250 ML IV SCH ×2 (11:10→12:00)
[2019-10-24] MEDS: DOPamine 1600MCG/ML D5W 250 ML IV SCH ×2 (11:27→11:36)
[2019-10-24 13:45] LABS: Basophils # (auto) 0 uL; Eosinophils # (auto) 0 uL; Hematocrit 40.6 % (36.0-46.0); Hemoglobin 12.3 g/dL (12.2-16.2); Lymphocytes # (auto) 0.6 uL; Lymphocytes % (auto) 4.5 % (10.0-50.0); Mean Corpuscular Hemoglobin 20.9 pg (28.0-32.0); Mean Corpuscular Hgb Conc. 30.2 g/dL (32.0-36.0); Mean Corpuscular Volume 69.1 fL (80.0-100.0); Monocytes # (auto) 0.5 uL; Monocytes % (auto) 3.4 % (0.0-12.0); Neutrophils # (auto) 12.2 uL; Neutrophils % (auto) 92.1 % (37.0-80.0); Platelet Count (auto) 227 10^3/uL (140-450); Red Blood Cells 5.87 10^6/uL (4.0-5.20); White Blood Cell 13.3 10^3/uL (4.4-10.8)
[2019-10-24 13:47] LABS: Red Cell Distribution Width 24.1 % (11.8-14.3)
[2019-10-24 13:56] LABS: INR 1.59 (0.9-1.15); Partial Thromboplastin Time 39.3 sec (23.64-32.05)
[2019-10-24 13:57] LABS: Calcium 7.8 mg/dL (8.5-10.1); Potassium 3.9 mmol/L (3.5-5.1)
[2019-10-24 14:00] LABS: BUN/Creatinine Ratio 36.4; Lactic Acid w/Reflex 3.9 mmol/L (0.4-2.0)
[2019-10-24] MEDS: MIDAZOLAM DRIP 50 mg/50mL 50 ML IV SCH ×2 (15:54→20:18)
[2019-10-24] MEDS ORDERED: VANCOMYCIN PER PHARMACY 0 MG IV SCH (18:15)
[2019-10-24] MEDS ORDERED: PHYTONADIONE (VitK) ORAL Susp 1 MG/ML PO ONE (18:15)
[2019-10-24] MEDS ORDERED: VANCOMYCIN 1GM/250ML 250 ML IV ONE (18:45)
[2019-10-24 19:06] LABS: Basophils # (auto) 0 uL; Eosinophils # (auto) 0 uL; Lymphocytes # (auto) 0.6 uL; Monocytes # (auto) 0.7 uL
[2019-10-24 19:14] LABS: Basophils % (auto) 0.1 % (0.0-2.0); Hematocrit 38.1 % (36.0-46.0); Mean Corpuscular Hemoglobin 21.3 pg (28.0-32.0); Mean Corpuscular Hgb Conc. 31.4 g/dL (32.0-36.0); Mean Corpuscular Volume 67.8 fL (80.0-100.0); Monocytes % (auto) 4.6 % (0.0-12.0); Neutrophils % (auto) 91.3 % (37.0-80.0); Platelet Count (auto) 246 10^3/uL (140-450); Red Blood Cells 5.61 10^6/uL (4.0-5.20); White Blood Cell 14.2 10^3/uL (4.4-10.8)
[2019-10-24 19:19] LABS: Red Cell Distribution Width 23.9 % (11.8-14.3)
[2019-10-24 19:26] LABS: Albumin 2.3 g/dL (3.4-5.0); Bilirubin, Direct 0.2 mg/dL (0-0.2); Calcium 7.6 mg/dL (8.5-10.1); INR 1.48 (0.9-1.15); Magnesium 1.5 mg/dL (1.6-2.6); Partial Thromboplastin Time 38.6 sec (23.64-32.05); Potassium 3.8 mmol/L (3.5-5.1)
[2019-10-24 19:31] LABS: BUN/Creatinine Ratio 41.4; Bilirubin, Total 0.4 mg/dL (0.2-1.0); Total Protein 5.9 g/dL (6.4-8.2)
[2019-10-24] MEDS ORDERED: POLYETHYLENE GLYCOL 17 GM PWDR GT ONE (20:00)
[2019-10-24] MEDS: MAGNESIUM SULFATE 1GM/100ML 100 ML IV SCH ×3 (20:14→22:00)
[2019-10-24] MEDS: PHENYTOIN SODIUM 50 MG/ML 2ML VIAL IV SCH (22:35)
[2019-10-24] MEDS: DOCUSATE ORAL LIQUID 100 MG/10 ML UD GT SCH (22:36)
[2019-10-25] VITALS (46 sets, daily range): BP systolic 72–156; BP diastolic 41–83
[2019-10-25] MEDS: ACCU-CHEK COMFORT CURVE STRIP VI SCH ×4 (00:18→17:42)
[2019-10-25] MEDS: PIPERACILLIN-TAZOB 3.375GM 100 ML IV SCH ×5 (00:18→23:14)
[2019-10-25] MEDS: ARTIFICIAL TEAR OPTH(EYE) OINT 3.5GM EACHEYE SCH ×6 (02:00→22:00)
[2019-10-25 06:00] LABS: Hematocrit 37.3 % (36.0-46.0); Hemoglobin 11.6 g/dL (12.2-16.2); Mean Corpuscular Hemoglobin 21.1 pg (28.0-32.0); Mean Corpuscular Hgb Conc. 31.2 g/dL (32.0-36.0); Mean Corpuscular Volume 67.5 fL (80.0-100.0); Platelet Count (auto) 228 10^3/uL (140-450); Red Blood Cells 5.53 10^6/uL (4.0-5.20); White Blood Cell 11.8 10^3/uL (4.4-10.8)
[2019-10-25] MEDS: InsuLIN REG 1unit/0.01ml Soln (100units/ml) SC SCH ×4 (06:00→17:42)
[2019-10-25 06:01] LABS: INR 1.26 (0.9-1.15); Partial Thromboplastin Time 38.2 sec (23.64-32.05)
[2019-10-25 06:13] LABS: Potassium 3.9 mmol/L (3.5-5.1)
[2019-10-25 06:22] LABS: Albumin 2.3 g/dL (3.4-5.0); BUN/Creatinine Ratio 26.2; Bilirubin, Direct 0.3 mg/dL (0-0.2); Bilirubin, Total 0.6 mg/dL (0.2-1.0); Calcium 7.7 mg/dL (8.5-10.1); Magnesium 2.5 mg/dL (1.6-2.6); Total Protein 5.9 g/dL (6.4-8.2)
[2019-10-25] MEDS: PHENYTOIN SODIUM 50 MG/ML 2ML VIAL IV SCH ×3 (06:27→22:00)
[2019-10-25] MEDS: VANCOMYCIN 1GM/250ML 250 ML IV SCH ×2 (06:47→16:58)
[2019-10-25] MEDS: DOCUSATE ORAL LIQUID 100 MG/10 ML UD GT SCH ×3 (06:47→22:00)
[2019-10-25 06:52] LABS: Basophils % (manual) 0 (0.0-2.0); Blast Cells 0; Myelocytes % 0; Promyelocytes % 0; Reactive Lymphocytes 0
[2019-10-25] MEDS: DOPamine 1600MCG/ML D5W 250 ML IV SCH (07:06)
[2019-10-25] MEDS: SODIUM CHLORIDE 0.9% 1,000 ML IV SCH ×2 (07:06→16:58)
[2019-10-25 07:32] LABS: Band Neutrophils % (manual) 27; Eosinophils % (manual) 2 (0-7); Lymphocytes % (manual) 2 (10.0-50.0); Metamyelocytes % 1; Monocytes % (manual) 9 (0-12)
[2019-10-25] MEDS: ENOXAPARIN SOD 40 MG/0.4 ML SYRINGE SC SCH (09:14)
[2019-10-25] MEDS: PANTOPRAZOLE 40 MG/10 ML VIAL INJ IV SCH (09:18)
[2019-10-25] MEDS: NOREPINEPHRINE 8 MG/250ML KIT 250 ML IV SCH (10:58)
--- NOTE | 2019-10-25 11:33 | NUR ---
NUTRITION CONSULT/ASSESSMENT NOTES Please refer to link notes of nutrition screen form filed under the intervention section of the plan of care for further details. Est. Needs: 1700 kcal to 2050 kcal (25-30 kcal/kgBW), 68 gms to 88 gms pro (1.0-1.3 gms/kgBW d/t severe hypoalbuminemia). Will continue to monitor pertinent labs and reassess nutrient need prn Thank you for this consult. Addendum: 10/25/19 at [address] Amended: Links added.
[2019-10-25] MEDS: IPRATROPIUM BROM 0.5 MG/2.5ML INH SOL NEB SCH ×2 (11:45→19:18)
[2019-10-25] MEDS: ALBUTEROL SULF 2.5 MG/0.5ML(0.5%) NEB SOLN NEB SCH ×2 (11:45→19:18)
--- NOTE | 2019-10-25 12:30 | NUR ---
RT Transport Note: Patient transported to {105} with RN {LENA BALLARD}. Patient transported to and from procedure on ventilator with previous ordered settings. Patient on night monitor with alarms set and audible, ambu-bag/mask connected to 02 tank. Patient returned to room with no adverse reaction noted. Transport completed without incident.
--- NOTE | 2019-10-25 12:50 | NUR ---
Admit to ICU from ER on vent [place],DIPTIadmitted to ICU via gurney on child monitor, intubated and being bagged by Respiratory Therapist. Patient transfered to bed, connected to mechanical ventilator by therapist. Patient connected to ICU monitoring, weighed by erin, oriented to KELLI MELARA RN primary RN, unit, ventilator and sedation.
--- NOTE | 2019-10-25 13:00 | NUR ---
THIS RN IS UNABLE TO COMPLETE ADMISSION 100% DUE TO PATIENT BEING SEDATED AND INTUBATED AND NO FAMILY MEMBERS PRESENT.
--- NOTE | 2019-10-25 13:48 | NUR ---
DR. MARTINEZ HERE TO SEE PATIENT. SEE MD NOTES AND EMR FOR ANY NEW ORDERS.
--- NOTE | 2019-10-25 17:08 | NUR ---
DR. BLANDON HERE TO SEE PATIENT. SEE MD NOTES AND EMR FOR ANY NEW ORDERS.
[2019-10-25] MEDS ORDERED: FUROSEMIDE 20 MG/2 ML VIAL IV ONE (17:15)
[2019-10-26] VITALS (89 sets, daily range): BP systolic 78–137; BP diastolic 46–83
[2019-10-26] MEDS: IPRATROPIUM BROM 0.5 MG/2.5ML INH SOL NEB SCH ×4 (00:01→18:38)
[2019-10-26] MEDS: ALBUTEROL SULF 2.5 MG/0.5ML(0.5%) NEB SOLN NEB SCH ×4 (00:01→18:38)
[2019-10-26] MEDS: DOPamine 1600MCG/ML D5W 250 ML IV SCH (00:11)
[2019-10-26] MEDS: MIDAZOLAM DRIP 50 mg/50mL 50 ML IV SCH (00:12)
--- NOTE | 2019-10-26 00:15 | NUR ---
Pt dropped the BP, versed gtt to 1 mg/hr. dopamine started at 5 mcg/kg/min with good result.
[2019-10-26] MEDS: ARTIFICIAL TEAR OPTH(EYE) OINT 3.5GM EACHEYE SCH ×6 (02:00→22:12)
[2019-10-26] MEDS: SODIUM CHLORIDE 0.9% 1,000 ML IV SCH ×3 (04:00→22:30)
[2019-10-26 04:07] LABS: Basophils # (auto) 0 uL; Eosinophils # (auto) 0.1 uL; Eosinophils % (auto) 0.6 % (0.0-7.0); Hemoglobin 11.9 g/dL (12.2-16.2); Lymphocytes # (auto) 0.7 uL; Mean Corpuscular Hemoglobin 21.3 pg (28.0-32.0); Monocytes # (auto) 0.6 uL; Red Blood Cells 5.57 10^6/uL (4.0-5.20)
[2019-10-26 04:08] LABS: Hematocrit 37.6 % (36.0-46.0); Lymphocytes % (auto) 6.7 % (10.0-50.0); Mean Corpuscular Hgb Conc. 31.6 g/dL (32.0-36.0); Mean Corpuscular Volume 67.6 fL (80.0-100.0); Monocytes % (auto) 5.7 % (0.0-12.0); Platelet Count (auto) 199 10^3/uL (140-450); White Blood Cell 10.4 10^3/uL (4.4-10.8)
[2019-10-26 04:30] LABS: Albumin 2.3 g/dL (3.4-5.0); Calcium 7.8 mg/dL (8.5-10.1); Potassium 3.2 mmol/L (3.5-5.1)
[2019-10-26 04:35] LABS: BUN/Creatinine Ratio 21.5; Bilirubin, Total 0.7 mg/dL (0.2-1.0); Total Protein 6.3 g/dL (6.4-8.2)
[2019-10-26 05:34] LABS: Red Cell Distribution Width 24.4 % (11.8-14.3)
[2019-10-26] MEDS: InsuLIN REG 1unit/0.01ml Soln (100units/ml) SC SCH ×5 (06:00→23:46)
[2019-10-26] MEDS: ACCU-CHEK COMFORT CURVE STRIP VI SCH ×5 (06:00→23:40)
[2019-10-26] MEDS: PHENYTOIN SODIUM 50 MG/ML 2ML VIAL IV SCH ×3 (06:26→22:12)
[2019-10-26] MEDS: DOCUSATE ORAL LIQUID 100 MG/10 ML UD GT SCH ×3 (06:26→22:11)
[2019-10-26] MEDS: PIPERACILLIN-TAZOB 3.375GM 100 ML IV SCH ×4 (06:27→23:39)
[2019-10-26] MEDS: VANCOMYCIN 1GM/250ML 250 ML IV SCH (06:27)
--- NOTE | 2019-10-26 08:00 | NUR ---
DR. RAI HERE TO SEE PATIENT. SEE MD NOTES AND EMR FOR ANY NEW ORDERS.
[2019-10-26] MEDS: ENOXAPARIN SOD 40 MG/0.4 ML SYRINGE SC SCH (10:00)
[2019-10-26] MEDS: PANTOPRAZOLE 40 MG/10 ML VIAL INJ IV SCH (10:40)
[2019-10-26] MEDS: NOREPINEPHRINE 8 MG/250ML KIT 250 ML IV SCH (11:10)
--- NOTE | 2019-10-26 11:30 | NUR ---
DOPAMINE INCREASED TO 8 MCG/MIN DUE TO DECREASED BLOOD PRESSURE.
--- NOTE | 2019-10-26 13:59 | NUR ---
THIS RN CALLED THE [place] OFFICE FOR [facility] TO SEE IF PATIENTS FAMILY COULD BE IDENTIFIED DUE TO PATIENTS TRANSIENT STATUS. [facility] FROM [facility] OFFICE #[phone] STATES O FAMILY IS LISTED.
--- NOTE | 2019-10-26 14:53 | NUR ---
assessment Patient is a 64 year old female who is on a vent. Per patients boyfriend Massimo [phone] patient has lived with him for the past 3 years and functioned independently. Patient does have home 02. 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 I have known this patient for some years being [facility]. As far as I know patient has always told me she has no family. Patient has given me Massimo's phone number and Krason a friend's number for emergency contacts. Per Massimo he will come to bedside as soon as he finds a ride to the hospital. I have given patients bedside RN this information. Addendum: 10/26/19 at 1507 by Gricelda MATHEWS Amended: Links added.
--- NOTE | 2019-10-26 15:22 | NUR ---
PATIENT CONTINUES TO DE SAT TO LOW 80% CALL OUT TO DR. BLANDON NEW ORDERS RECIEVED TO INCREASE PEEP TO 8. CURRENT FIO2 IS 90%.
--- NOTE | 2019-10-26 20:00 | NUR ---
DR Shahram ROMERO HERE AT 1900. PLAN FOR TERMINAL WEAN TOMORROW. PUPILS FIXED AND DILATED. NO BLINK, COUGH, OR GAG. ORAL CARE DONE. ETT TO VENTILATOR. O2 SAT 93%. FOLLOWING THE VENTILATOR RATE OF 22. LUNGS CLEAR. ABDOMEN SOFT AND FLAT. NO BOWEL SOUNDS. ARRIAGA TO DOWN DRAIN BAG. ARM, HAND AND LEG SWELLING. ARMS ELEVATED ON PILLOWS. HOLDING TEMPERATURE. RECTAL TEMP PROBE IN. COMPARABLE TO THE AXILLARY TEMP. FOAM BOOTS OFF FOR 2 HOURS. NO SKIN BREAKDOWN. RIGHT FEMORAL TRIPLE LUMEN SITE DRESSING CHANGE DONE. VANCOMYCIN LEVEL HIGH. DILANTIN LEVEL LOW. EEG AND HEAD CT POSITIVE. MDS AWARE.
--- NOTE | 2019-10-26 21:00 | NUR ---
O2 SAT DROPPED TO 90%. RT NOTIFIED. LAVAGED, SUCTIONED ETT FOR NO SECRETIONS. CHANGED THE O2 SAT PROBE TO ANOTHER EAR. O2 SAT REMAINED 90%. O2 SAT DROPPED TO 86%. RT DRAWING AN ABG.
[2019-10-26 21:26] LABS: Hemoglobin 13.1 g/dL (12.2-16.2); White Blood Cell 16.7 10^3/uL (4.4-10.8)
[2019-10-26 21:27] LABS: Hematocrit 43.5 % (36.0-46.0); Mean Corpuscular Hemoglobin 20.6 pg (28.0-32.0); Mean Corpuscular Hgb Conc. 30.1 g/dL (32.0-36.0); Mean Corpuscular Volume 68.4 fL (80.0-100.0); Platelet Count (auto) 199 10^3/uL (140-450); Red Blood Cells 6.36 10^6/uL (4.0-5.20)
[2019-10-26 21:38] LABS: Albumin 2.1 g/dL (3.4-5.0); Calcium 8.4 mg/dL (8.5-10.1)
[2019-10-26 21:42] LABS: BUN/Creatinine Ratio 19.4; Bilirubin, Direct 0.5 mg/dL (0-0.2); Bilirubin, Total 1.1 mg/dL (0.2-1.0); Total Protein 6.3 g/dL (6.4-8.2)
--- NOTE | 2019-10-26 21:42 | NUR ---
ABG RESULTS RETURNED. O2 SAT 86%. PO2 55.6. CALL IN TO DR BLANDON. PATIENT IS NOW ON 100%. DR MAHONEY MEDICAL TECHNICAL WRITER. ANSWERING SERVICE PAGED HIM.
--- NOTE | 2019-10-26 21:45 | NUR ---
DR Shahram ROMERO AWARE OF THE DECREASE IN O2 SATURATION.
[2019-10-26 21:50] LABS: Potassium 2.7 mmol/L (3.5-5.1)
--- NOTE | 2019-10-26 21:59 | NUR ---
DR BLANDON CALLED. ABG RESULTS REPORTED. HE IS AWARE OF THE VENTILATOR SETTINGS. ORDER RECEIVED TO INCREASE THE PEEP TO 10. ORDER TO KEEP THE O2 SATURATION GREATER THAN 88% AND TO CALL IF I GET CONCERNED.
[2019-10-26 22:00] LABS: Red Cell Distribution Width 24.5 % (11.8-14.3)
[2019-10-26 22:01] LABS: Band Neutrophils % (manual) 0; Basophils % (manual) 0 (0.0-2.0); Blast Cells 0; Metamyelocytes % 0; Myelocytes % 0; Promyelocytes % 0; Reactive Lymphocytes 0
--- NOTE | 2019-10-26 22:13 | NUR ---
SBP DROPPED TO 80. INCREASED THE DOPAMINE DRIP. O2 SAT IS NOW 91%.
--- NOTE | 2019-10-26 22:21 | NUR ---
REPORTED POTASSIUM OF 2.[address] Shahram ROMERO. ORDER RECEIVED FOR 40MEQ IV
[2019-10-26] MEDS ORDERED: POTASSIUM CHL 20MEQ/100ML 100 ML IV ONE (22:25)
[2019-10-26] MEDS: POTASSIUM CHL 20MEQ/100ML 100 ML IV SCH (22:30)
[2019-10-26 22:47] LABS: Lymphocytes % (manual) 10 (10.0-50.0)
[2019-10-26 22:48] LABS: Eosinophils % (manual) 2 (0-7); Monocytes % (manual) 4 (0-12)
--- NOTE | 2019-10-26 23:25 | NUR ---
HR 114, NO ECTOPY. SBP STABLE ON DOPAMINE AT 15 MCG/KG/MIN. FOLLOWS VENTILATOR RATE. O2 SAT HAS BEEN VACILLATING BETWEEN 90 AND 93%.
[2019-10-27] VITALS (106 sets, daily range): BP systolic 81–138; BP diastolic 51–95
[2019-10-27] MEDS: POTASSIUM CHL 20MEQ/100ML 100 ML IV SCH
--- NOTE | 2019-10-27 | NUR ---
NO CHANGE NEUROLOGICALLY. PUPILS FIXED AND DILATED. LUNGS CLEAR. REPOSITIONED. ORAL CARE. LARGE URINE OUTPUT. DOPAMINE FOR BLOOD PRESSURE SUPPORT. SINUS TACHYCARDIA NO ECTOPY.
[2019-10-27] MEDS: DOPamine 1600MCG/ML D5W 250 ML IV SCH ×3 (00:03→15:20)
[2019-10-27] MEDS: ALBUTEROL SULF 2.5 MG/0.5ML(0.5%) NEB SOLN NEB SCH ×4 (00:14→18:20)
[2019-10-27] MEDS: IPRATROPIUM BROM 0.5 MG/2.5ML INH SOL NEB SCH ×4 (00:14→18:20)
[2019-10-27] MEDS: ARTIFICIAL TEAR OPTH(EYE) OINT 3.5GM EACHEYE SCH ×4 (02:00→14:29)
--- NOTE | 2019-10-27 02:00 | NUR ---
CHG BATH. NO NEURO CHANGES. PUPILS FIXED AND DILATED. LUNGS CLEAR.NO VENTILATOR CHANGES. VSS.
--- NOTE | 2019-10-27 03:30 | NUR ---
AM LABS DRAWN
--- NOTE | 2019-10-27 04:00 | NUR ---
ORAL CARE. ETT SUCTIONED FOR NO SECRETIONS. ABDOMEN SOFT.LARGE CLEAR YELLOW URINE OUTPUT.
[2019-10-27 04:15] LABS: Basophils # (auto) 0 uL; Eosinophils # (auto) 0.4 uL; Hemoglobin 13.5 g/dL (12.2-16.2); Mean Corpuscular Volume 68.3 fL (80.0-100.0)
[2019-10-27 04:25] LABS: Eosinophils % (auto) 1.8 % (0.0-7.0); Lymphocytes # (auto) 1.3 uL; Lymphocytes % (auto) 6.5 % (10.0-50.0); Mean Corpuscular Hgb Conc. 30.7 g/dL (32.0-36.0); Monocytes # (auto) 1.8 uL; Monocytes % (auto) 8.8 % (0.0-12.0); Neutrophils # (auto) 16.5 uL; Neutrophils % (auto) 82.9 % (37.0-80.0); Platelet Count (auto) 194 10^3/uL (140-450); Red Blood Cells 6.45 10^6/uL (4.0-5.20)
[2019-10-27 04:38] LABS: Potassium 3.5 mmol/L (3.5-5.1)
[2019-10-27 04:42] LABS: INR 1.33 (0.9-1.15); Partial Thromboplastin Time 33.6 sec (23.64-32.05)
[2019-10-27 04:46] LABS: Albumin 1.9 g/dL (3.4-5.0); BUN/Creatinine Ratio 17.2; Bilirubin, Direct 0.6 mg/dL (0-0.2); Bilirubin, Total 1.2 mg/dL (0.2-1.0); Calcium 8.2 mg/dL (8.5-10.1); Magnesium 2.1 mg/dL (1.6-2.6)
[2019-10-27] MEDS: InsuLIN REG 1unit/0.01ml Soln (100units/ml) SC SCH ×3 (06:00→18:00)
[2019-10-27] MEDS: ACCU-CHEK COMFORT CURVE STRIP VI SCH ×3 (06:11→18:14)
[2019-10-27] MEDS: PHENYTOIN SODIUM 50 MG/ML 2ML VIAL IV SCH ×3 (06:11→22:07)
[2019-10-27] MEDS: PIPERACILLIN-TAZOB 3.375GM 100 ML IV SCH ×3 (06:11→18:00)
[2019-10-27] MEDS: DOCUSATE ORAL LIQUID 100 MG/10 ML UD GT SCH ×3 (06:11→22:07)
--- NOTE | 2019-10-27 06:33 | NUR ---
NO CHANGE IN ASSESSMENT. PUPILS FIXED , EQUAL AND DILATED. NO MOVEMENT OF EXTREMITIES. FOLLOWS THE VENTILATOR. DOPAMINE HAS STAYED AT 15 MCG/KG/MIN FOR MANY HOURS. SINUS TACHYCARDIA 103-110. O2 SAT RANGE 90-93%. SBP VACILLATES BETWEEN 92 AND 117.
[2019-10-27] MEDS: SODIUM CHLORIDE 0.9% 1,000 ML IV SCH (07:23)
--- NOTE | 2019-10-27 07:31 | NUR ---
SHIFT OPENING NOTE PATIENT ON MECHANICAL VENTILATOR, NO SEDATION, NO COUGH OR GAG REFLEX, NO RESPONSE TO PAINFUL STIMULI. PUPILS 5 EQUAL ROUND AND NON REACTIVE TO LIGHT. ON DOPAMINE FOR BLOOD PRESSURE SUPPORT. ABDOMEN FLAT AND SOFT, NGT CLAMPED, ARRIAGA DRAINING CLEAR, YELLOW URINE. BAG FREE OF KINKS AND BAG HUNG BELOW BLADDER. WAFFLE BOOTS TO BILATERAL LOWER EXTREMITIES.
--- NOTE | 2019-10-27 09:11 | NUR ---
DR. OLIVA AT BEDSIDE
[2019-10-27] MEDS: PANTOPRAZOLE 40 MG/10 ML VIAL INJ IV SCH (09:31)
[2019-10-27] MEDS: ENOXAPARIN SOD 40 MG/0.4 ML SYRINGE SC SCH (09:31)
--- NOTE | 2019-10-27 10:00 | NUR ---
Attempted to locate next of kin. Per patients previous visits no next of kin is listed only friends. Attempted to call patients friend Massimo at [phone], no answer. Attempted to call a friend "Alexandria", listed from 2014 at [phone], the number is no longer in service. Call a friend listed on 2014 "Leanne" at [phone]. Leanne stated she has known the patient for 8 years and has helped her put over the years. She has helped pay for medications, hotels when weather is bad, and for food. Leanne stated in the 8 years of knowing the patient Amanda had never mentioned any family, that her father and mother had and she never spoke of any siblings and did not have children. Leanne asked about the patient she was informed the patient was in critical condition and we are in the need to locate a family member to make medical decisions for her. Leanne stated there is no one to make those decisions and the doctors should be the ones to make these decisions as she has no family.
[2019-10-27] MEDS: SOD CHL 0.45% 1,000 ML IV SCH (10:01)
[2019-10-27] MEDS: FREE WATER GT SCH ×4 (10:01→22:05)
--- NOTE | 2019-10-27 10:35 | NUR ---
ROBERTA ALLEN ATTEMPTED TO CONTACT ROBERTA WITH NO RESPONSE.
[2019-10-27] MEDS: VANCOMYCIN 1GM/250ML 250 ML IV SCH (10:50)
[2019-10-27] MEDS: NOREPINEPHRINE 8 MG/250ML KIT 250 ML IV SCH (11:10)
--- NOTE | 2019-10-27 14:11 | NUR ---
ROBERTA ALLEN CALLBACK UPDATED ON PATIENT STATUS. PER ROBERTA HE WILL BE HERE TODAY AROUND 5 OR 6 PM
[2019-10-27] MEDS: MIDAZOLAM DRIP 50 mg/50mL 50 ML IV SCH (15:47)
--- NOTE | 2019-10-27 16:22 | NUR ---
DR. LOCKHART AT BEDSIDE
--- NOTE | 2019-10-27 17:45 | NUR ---
DR. RAI PAGED
[2019-10-27] MEDS: ARTIFICIAL TEARS 15ml EACHEYE SCH ×2 (18:14→22:19)
[2019-10-27 18:38] LABS: Basophils # (auto) 0 uL; Basophils % (auto) 0.1 % (0.0-2.0); Hemoglobin 12.7 g/dL (12.2-16.2); Nucleated Red Blood Cells % 0.1 %; White Blood Cell 19.4 10^3/uL (4.4-10.8)
[2019-10-27 18:39] LABS: Eosinophils # (auto) 0.4 uL; Eosinophils % (auto) 2.2 % (0.0-7.0); Hematocrit 41.5 % (36.0-46.0); Lymphocytes # (auto) 1.4 uL; Mean Corpuscular Hgb Conc. 30.7 g/dL (32.0-36.0); Mean Corpuscular Volume 68.3 fL (80.0-100.0); Monocytes # (auto) 2.1 uL; Monocytes % (auto) 10.7 % (0.0-12.0); Neutrophils # (auto) 15.5 uL; Platelet Count (auto) 161 10^3/uL (140-450); Red Blood Cells 6.08 10^6/uL (4.0-5.20)
[2019-10-27 18:45] LABS: Albumin 1.9 g/dL (3.4-5.0); Calcium 8.2 mg/dL (8.5-10.1); Magnesium 2.1 mg/dL (1.6-2.6); Potassium 3.4 mmol/L (3.5-5.1)
[2019-10-27 18:49] LABS: Bilirubin, Direct 0.5 mg/dL (0-0.2); Red Cell Distribution Width 24.1 % (11.8-14.3); Total Protein 5.9 g/dL (6.4-8.2)
[2019-10-27 18:52] LABS: INR 1.3 (0.9-1.15); Partial Thromboplastin Time 34.7 sec (23.64-32.05)
--- NOTE | 2019-10-27 19:45 | NUR ---
CALL PLACED TO DR Shahram ROMERO TO INFORM HIM OF THE POTASSIUM OF 3.4.
--- NOTE | 2019-10-27 20:00 | NUR ---
DR Shahram ROMERO CALLED BACK. ORDER RECEIVED FOR A K RIDER OF 20 MEQ AND TO USE K PROTOCOL.
[2019-10-27] MEDS ORDERED: POTASSIUM CHL 20MEQ/100ML 100 ML IV ONE ×2 (20:40→20:45)
[2019-10-27] MEDS ORDERED: POTASSIUM CHL 20MEQ/100ML 100 ML IV PRN (20:45)
--- NOTE | 2019-10-27 22:00 | NUR ---
NO CHANGE NEUROLOGICALLY. FEVER STABLE. NSR WITHOUT ECTOPY. LUNGS CLEAR. GOOD URINE OUTPUT.
[2019-10-28] VITALS (74 sets, daily range): BP systolic 70–151; BP diastolic 33–91
--- NOTE | 2019-10-28 | NUR ---
PUPILS REMAIN FIXED AND DILATED AT 6. LUNGS CLEAR. ORAL CARE. ABDOMEN SOFT. GOOD URINE OUTPUT. ARMS AND LEGS REMAIN SWOLLEN. TEMPERATURE STABLE. UNABLE TO WEAN DOWN THE DOPAMINE OR LEVOPHED
[2019-10-28] MEDS: ALBUTEROL SULF 2.5 MG/0.5ML(0.5%) NEB SOLN NEB SCH ×3 (00:05→13:46)
[2019-10-28] MEDS: IPRATROPIUM BROM 0.5 MG/2.5ML INH SOL NEB SCH ×3 (00:05→13:46)
[2019-10-28] MEDS: DOPamine 1600MCG/ML D5W 250 ML IV SCH (01:41)
[2019-10-28] MEDS: FREE WATER GT SCH ×4 (01:44→13:45)
[2019-10-28] MEDS: ARTIFICIAL TEARS 15ml EACHEYE SCH ×4 (01:44→13:45)
--- NOTE | 2019-10-28 02:00 | NUR ---
REPOSITIONED. ORAL CARE. TEMPERATURE STABLE. NOTHING SUCTIONED FROM THE ETT. GOOD URINE OUTPUT
--- NOTE | 2019-10-28 04:00 | NUR ---
NO CHANGE IN NEURO STATUS
[2019-10-28] MEDS: VANCOMYCIN 1GM/250ML 250 ML IV SCH (04:53)
[2019-10-28 05:17] LABS: Basophils % (auto) 0.3 % (0.0-2.0)
[2019-10-28 05:18] LABS: Basophils # (auto) 0.1 uL; Eosinophils # (auto) 0.8 uL; Eosinophils % (auto) 4.7 % (0.0-7.0); Hematocrit 41.6 % (36.0-46.0); Hemoglobin 12.4 g/dL (12.2-16.2); Lymphocytes # (auto) 1.9 uL; Mean Corpuscular Hemoglobin 20.6 pg (28.0-32.0); Mean Corpuscular Hgb Conc. 29.9 g/dL (32.0-36.0); Monocytes # (auto) 1.7 uL; Monocytes % (auto) 10.8 % (0.0-12.0); Neutrophils # (auto) 11.6 uL; Neutrophils % (auto) 72.2 % (37.0-80.0); Platelet Count (auto) 149 10^3/uL (140-450); Red Blood Cells 6.03 10^6/uL (4.0-5.20)
[2019-10-28 05:27] LABS: Red Cell Distribution Width 24.8 % (11.8-14.3)
[2019-10-28 05:33] LABS: Albumin 1.7 g/dL (3.4-5.0); Calcium 8.3 mg/dL (8.5-10.1); INR 1.33 (0.9-1.15); Partial Thromboplastin Time 33.9 sec (23.64-32.05); Potassium 3.3 mmol/L (3.5-5.1)
[2019-10-28 05:38] LABS: BUN/Creatinine Ratio 19.6; Bilirubin, Direct 0.5 mg/dL (0-0.2); Total Protein 5.7 g/dL (6.4-8.2)
[2019-10-28] MEDS: DOCUSATE ORAL LIQUID 100 MG/10 ML UD GT SCH ×2 (05:38→13:45)
[2019-10-28] MEDS: PIPERACILLIN-TAZOB 3.375GM 100 ML IV SCH ×3 (05:39→13:30)
[2019-10-28] MEDS: ACCU-CHEK COMFORT CURVE STRIP VI SCH ×3 (05:39→11:28)
[2019-10-28] MEDS: PHENYTOIN SODIUM 50 MG/ML 2ML VIAL IV SCH ×2 (05:39→13:47)
[2019-10-28] MEDS: SOD CHL 0.45% 1,000 ML IV SCH ×3 (05:40→15:45)
[2019-10-28] MEDS: InsuLIN REG 1unit/0.01ml Soln (100units/ml) SC SCH ×3 (06:00→11:28)
--- NOTE | 2019-10-28 06:00 | NUR ---
NSR WITHOUT ECTOPY. NO SKIN ISSUES. LUNGS CLEAR. NOTHING SUCTIONED FROM THE ETT. ORAL CARE DONE.PUPILS FIXED AND DILATED.
[2019-10-28] MEDS: NOREPINEPHRINE 8 MG/250ML KIT 250 ML IV SCH (06:38)
--- NOTE | 2019-10-28 07:34 | NUR ---
SHIFT OPENING NOTE PATIENT ON MECHANICAL VENTILATOR, NO SEDATION AT THIS TIME, NO COUGH, GAG, PUPIL RESPONSE OR ANY RESPONSE TO PAINFUL STIMULI. LUNGS RHONCHI THROUGHOUT, ABDOMEN FLAT AND NONTENDER, ARRIAGA DRAINING CLEAR, YELLOW URINE. SKIN INTEGRITY SEE ASSESSMENT.
[2019-10-28] MEDS: POTASSIUM CHL 20MEQ/100ML 100 ML IV SCH ×2 (08:11→09:56)
[2019-10-28] MEDS: PANTOPRAZOLE 40 MG/10 ML VIAL INJ IV SCH (09:55)
[2019-10-28] MEDS: ENOXAPARIN SOD 40 MG/0.4 ML SYRINGE SC SCH (09:56)
--- NOTE | 2019-10-28 10:15 | NUR ---
TIFFANY GRANADOS AT BEDSIDE UPDATED ON PATIENT STATUS. ALL QUESTIONS AND CONCERNS ADDRESSED AT THIS TIME
--- NOTE | 2019-10-28 10:18 | NUR ---
DR. BLANDON AT BEDSIDE
--- NOTE | 2019-10-28 11:00 | NUR ---
[facility] UPDATED ON PATIENT STATUS. SPOKE WITH [facility]. REFERENCE NUMBER [id number]
--- NOTE | 2019-10-28 11:26 | NUR ---
[facility] SPOKE WITH BOYFRIEND ROBERTA. DISCUSSED PATIENT STATUS AND ORGAN DONATION. PER ROBERTA BELIEVES PATIENT WOULD NOT WANT TO DONATE ANY ORGANS
[2019-10-28] MEDS ORDERED: LORazepam 2MG/ML-1ML VIAL IV PRN (13:15)
[2019-10-28] MEDS ORDERED: MORPHINE SULFATE 4 MG/ML SYR/VIAL IV ONE (13:15)
[2019-10-28] MEDS ORDERED: MORPHINE SULF INJ 2 MG/ML SYRINGE 1ML IV PRN (13:15)
--- NOTE | 2019-10-28 13:31 | NUR ---
VISITOR FRIEND BRAYAN AT BEDSIDE. UPDATED ON PATIENT STATUS. ALL QUESTIONS AND CONCERNS ADDRESSED AT THIS TIME
[2019-10-28] MEDS: MIDAZOLAM DRIP 50 mg/50mL 50 ML IV SCH (15:47)
--- NOTE | 2019-10-28 16:25 | NUR ---
PRE TERMINAL MCKAY ALLEN CALLED AND UPDATED ON PATIENT STATUS. PER ROBERTA ALL FRIENDS HAVE SEEN PATIENT AND HE WOULD NOT LIKE TO BE PRESENT WHEN PATIENT IS TERMINALLY WEENED.
--- NOTE | 2019-10-28 16:34 | NUR ---
Respiratory note: pt made dnr and family decided to terminally wean. pt extubated at 1634 and placed on 2 lpm 02 nc for comfort measures.
--- NOTE | 2019-10-28 17:00 | NUR ---
ASYSTOLE PATIENT ASYSTOLE, NO PUPIL RESPONSE. NO HEART TONES AUSCULTATED
--- NOTE | 2019-10-28 17:13 | NUR ---
DR. THORNE CALLED TO NOTIFY OF PATIENTS
--- NOTE | 2019-10-28 17:28 | NUR ---
BOYFRIENHernandez GRANADOS UPDATED ON PATIENT STATUS. CONFIRMED WITH SECOND NURSE LEOLA SAM. PER ROBERTA HE WILL LOOK FOR ARRANGEMENTS
--- NOTE | 2019-10-28 18:10 | NUR ---
CALLED TO PRONOUNCE PT. WAS MADE DNR AND TERMINALLY EXTUBATED AT 1700. FOUND PT PULSELESS AND APNEIC. ASYSTOLE IN 3 LEADS. AFTER 1 MINUTE OF AUSCULTATION, NO PULSE OR RESP. ABSENCE OF ALL REFLEXES, PUPILS FIXED AND NONREACTIVE. TOHernandez [id number]
--- NOTE | 2019-10-28 18:21 | NUR ---
INSTRUCTIONAL SYSTEMS DESIGN CONSULTANT CALLED
--- NOTE | 2019-10-28 19:23 | NUR ---
REPORT GIVEN TO CATHY SAM TO ASSUME CARE
--- NOTE | 2019-10-29 06:30 | NUR ---
MERCHAND[employer] INTERN SPOKE WITH DAY TITLE COORDINATOR SRIDHAR PINON REGARDING PT. PER SRIDHAR, OKAY TO RELEASE PT TO MORTUARY. DUE TO HIGH VOLUME OF CASES, NO CASE NUMBER GIVEN. ANY QUESTIONS OR CONCERNS REGARDING CASE SRIDHAR SAID TO CALL HER.
--- NOTE | 2019-10-29 07:26 | NUR ---
PER [employer] SILVA BALLARD TO SEND BODY TO [facility]. PASSED INFO ON TO DAY SHIFT RN.
--- NOTE | 2019-10-29 07:43 | NUR ---
CALL TO HVAC REFRIGERATION TECHNICIAN OFFICE SPOKE WITH [employer] WHO STATED SHE WOULD PUT IN NOTE STATING WE NEED HVAC REFRIGERATION TECHNICIAN RELEASE # TO BE ABLE TO REMOVE BODY. CO # [phone]
--- NOTE | 2019-10-29 09:36 | NUR ---
ALL LINES AND TUBES REMOVED FROM PATIENT.
--- NOTE | 2019-10-29 12:05 | NUR ---
SPOKE WITH HIRAM PINON FROM [facility] OFFICE WHO STATES THAT THE PATIENT ABSOLUTELY DOES NOT NEED A SUSTAIN ENGINEER RELEASE # AND THAT THE CO # PREVIOUSLY GIVEN IS GOOD ENOUGH TO RELEASE THE BODY.
--- NOTE | 2019-10-29 12:07 | NUR ---
FRIEND BRAYAN TRUONG [phone]
--- NOTE | 2019-10-29 12:15 | NUR ---
I SPOKE WITH CLAUDIA AT [employer] SHE IS AWARE THAT FRIENDS WANT TO PAY FOR CREMATION BUT SHE INFORMED THEM THEY COULD NOT HAVE [employer] AFTER WARDS, BY LAW. SHE IS WILLING TO COMPRESSOR MECHANIC DECEDENT COURTESY HOLD
--- NOTE | 2019-10-29 13:30 | NUR ---
[employer] HERE TO ELECTRICAL SYSTEMS ENGINEER DECEDENT
== END 2019-10-29 09:44 | disposition expired | DRG 720 ==
LOC: EDUNIT# 11:05 → EDBD 11:05 → ER 11:05 → TELE 11:06 → ICU WEST 10-25 12:58
PROVIDERS: ADMIT Nurse Practitioner Acute Care; ATTEND Internal Medicine
PROC: 5A12012 Performance of Cardiac Output, Single, Manual (ICD-10-PCS; principal; 2019-10-23)
PROC: 0BH17EZ Insertion of Endotracheal Airway into Trachea, Via Natural or Artificial Opening (ICD-10-PCS; 2019-10-23)
PROC: 5A1955Z Respiratory Ventilation, Greater than 96 Consecutive Hours (ICD-10-PCS; 2019-10-23)
DX: A41.9 Sepsis, unspecified organism (principal); I46.9 Cardiac arrest, cause unspecified; N17.0 Acute kidney failure with tubular necrosis; R65.21 Severe sepsis with septic shock; J18.1 Lobar pneumonia, unspecified organism; J96.01 Acute respiratory failure with hypoxia; J96.02 Acute respiratory failure with hypercapnia; G92 Toxic encephalopathy; I50.23 Acute on chronic systolic (congestive) heart failure; G93.1 Anoxic brain damage, not elsewhere classified; D68.9 Coagulation defect, unspecified; S22.41XA Multiple fractures of ribs, right side, initial encounter for closed fracture; E87.1 Hypo-osmolality and hyponatremia; F20.9 Schizophrenia, unspecified; F17.210 Nicotine dependence, cigarettes, uncomplicated; I11.0 Hypertensive heart disease with heart failure; G40.909 Epilepsy, unspecified, not intractable, without status epilepticus; F11.10 Opioid abuse, uncomplicated; I49.01 Ventricular fibrillation; K59.00 Constipation, unspecified; E88.09 Other disorders of plasma-protein metabolism, not elsewhere classified; Z83.2 Family history of diseases of the blood and blood-forming organs and certain disorders involving the immune mechanism; Z59.0 Homelessness; Z82.62 Family history of osteoporosis; Z79.899 Other long term (current) drug therapy; Z91.19 Patient's noncompliance with other medical treatment and regimen
CPT/HCPCS: 31500; 36415; 36556; 36600; 51702; 70450; 71045; 71250; 74176; 80048; 80053; 80076; 80185; 80202; 80307; 81001; 82310; 82533; 82550; 82805; 82962; 83605; 83690; 83735; 83874; 83880; 84100; 84484; 84702; 85007; 85025; 85027; 85610; 85730; 87040; 87070; 87077; 87081; 87205; 92950; 93306; 94002; 94003; 94640; 95819; 96365; 96366; 96368; 99291; C9113; G0378; J0696; J1815; J1956; J2250; J2543; J3480; J3490; J7060